=== PATIENT | female | born 1970 | race Caucasian/White ===

== ENCOUNTER 2018-06-05 12:24 | Emergency (ER) | payer OTHER, SELFPAY ==
[2018-06-05 12:33] VITALS: BP 135/71; PULSE 104; RESP 20; TEMP 37; O2SAT 95; BMI 50.5
--- NOTE | 2018-06-05 12:42 | PC.NURSE ---
pt does not know how injury occurred. Assumes it was after moving and lifting heavy objects. Tried chiropractor, flexural, steroids, ibuprofen, and heat therapy with no or little relief. States she is more comfortable laying on her right side and remaining still. States she has difficulty walking, spasms down her leg, as well as tingling and twitching in her left arm and leg. Pt says this is different than her hx of sciatic nerve pain.
--- NOTE | 2018-06-05 12:53 | ED_ITS ---
HPI - Back Pain/Injury <Mary Webster PA-C - Last Filed: 06/05/18 17:42> General Chief Complaint: Back Pain/Injury Stated Complaint: BACK PAIN Time Seen by Provider: 06/05/18 12:52 Source: patient Mode of arrival: ambulatory Limitations: no limitations History of Present Illness HPI Narrative: This 47-year-old female complains left low back pain with muscle spasms and sciatica. She states this started last week when she was pushing some boxes. She felt a twinge in her back but took some ibuprofen and thought it was okay at the time. Pain worsened by the middle of last week, with muscle spasms radiating from her gluteal area up into her low back and somewhat down her leg. She was seen at the walk-in clinic Wednesday and changed to oral steroids and also taking Flexeril. She states that she continues to have spasm and did not notice improvement with the steroids versus the ibuprofen except for urinating more frequently. She states that she feels like her foot gives out due to pain rather than weakness. She does noticed tingling part way down the leg and sometimes in the front of thigh. She denies any difficulty urinating, change in bowel habits, numbness in the groin area. No other injury or new complaints such as fever. This is typical of her previous sciatica but worse Related Data Home Medications Medication Instructions Recorded Confirmed chlorthalidone 25 mg PO DAILY 06/10/18 06/10/18 glipizide 5 mg PO DAILY 06/10/18 06/10/18 insulin glargine [Lantus U-100 58 units SUBCUT QPM 06/10/18 06/10/18 Insulin] losartan 50 mg PO DAILY 06/10/18 06/10/18 metformin 1,000 mg PO BID 06/10/18 06/10/18 wllfhatjmjxm-nsjx-sbfhc acid 1 tab PO DAILY 06/10/18 06/10/18 [Centrum Women] rosuvastatin 20 mg PO DAILY 06/10/18 06/10/18 Previous Rx's Medication Instructions Recorded hydrocodone-acetaminophen [Castella] 1 tab PO Q4-6H PRN #6 tab 06/05/18 tizanidine [Zanaflex] 4 mg PO Q6-8H PRN #10 cap 06/05/18 Allergies Allergy/AdvReac Type Severity Reaction Status Date / Time Penicillins Allergy Verified 06/05/18 12:37 Review of Systems <Mary Webster PA-C - Last Filed: 06/05/18 17:42> Review of Systems All systems reviewed & are unremarkable except as noted in HPI and below Exam <Mary Webster PA-C - Last Filed: 06/05/18 17:42> Narrative Exam Narrative: GENERAL APPEARANCE: Patient resting comfortably, in no distress. PULMONARY: Lungs clear to auscultation bilaterally CV: Regular rhythm regular without murmur, normal S1 and S2, no S3 or S4 MUSCULOSKELETAL: No point tenderness over the lumbar spine. Reduced AROM of trunk in all barth secondary to tenderness. She is able to stand and ambulate with a limp on the left secondary to tenderness. Lower extremity strength 5/5 bilateral hip flexors, knee extensors, foot plantar flexion. Negative modified straight leg raise NEUROVASCULAR: Lower extremity sensation is grossly intact, lower extremity DTRs 1+ with distraction Initial Vital Signs Initial Vital Signs: Vital Signs Temperature 98.6 F 06/05/18 12:33 Pulse Rate 104 H 06/05/18 12:33 Respiratory Rate 20 06/05/18 12:33 Blood Pressure 135/71 06/05/18 12:33 Pulse Oximetry 95 06/05/18 12:33 <Daksha Mclain DO - Last Filed: 06/10/18 18:25> Initial Vital Signs Initial Vital Signs: Vital Signs Temperature 98.6 F 06/05/18 12:33 Pulse Rate 104 H 06/05/18 12:33 Respiratory Rate 20 06/05/18 12:33 Blood Pressure 135/71 06/05/18 12:33 Pulse Oximetry 95 06/05/18 12:33 Course <Mary Webster PA-C - Last Filed: 06/05/18 17:42> Additional Information: Patient was able to stand and ambulate more comfortably prior to d/c without evidence of LE weakness Orders Ordered: Discontinued Medications Hydrocodone Bitart/Acetaminophen (Castella 5/325) 2 tab PO NOW ONE Stop: 06/05/18 13:31 Last Admin: 06/05/18 13:51 Dose: 2 tab Ketorolac Tromethamine (Toradol) 60 mg IM NOW ONE Stop: 06/05/18 13:31 Last Admin: 06/05/18 13:51 Dose: 60 mg Tizanidine HCl (Zanaflex) 4 mg PO [facility] Last Admin: 06/05/18 13:52 Dose: 4 mg Vital Signs - 8 hr 06/05/18 12:33 06/05/18 15:03 Temperature 98.6 F Pulse Rate 104 H 68 Respiratory Rate 20 20 Blood Pressure 135/71 116/85 Pulse Oximetry 95 99 <Daksha Mclain, DO - Last Filed: 06/10/18 18:25> Orders Ordered: Discontinued Medications Hydrocodone Bitart/Acetaminophen (Castella 5/325) 2 tab PO NOW ONE Stop: 06/05/18 13:31 Last Admin: 06/05/18 13:51 Dose: 2 tab Ketorolac Tromethamine (Toradol) 60 mg IM NOW ONE Stop: 06/05/18 13:31 Last Admin: 06/05/18 13:51 Dose: 60 mg Tizanidine HCl (Zanaflex) 4 mg PO [facility] Last Admin: 06/05/18 13:52 Dose: 4 mg Vital Signs - 8 hr 06/05/18 12:33 06/05/18 15:03 Temperature 98.6 F Pulse Rate 104 H 68 Respiratory Rate 20 20 Blood Pressure 135/71 116/85 Pulse Oximetry 95 99 Discharge Plan Departure Patient Disposition: Home Clinical Impression: Sciatica, Sacro-iliac pain Discharge Date/Time: 06/05/18 15:05 Interventions: ED Discharge Assessment Last Done: 06/05/18 15:03 Instructions: Sacroiliac Joint Pain, DI for Back Pain With Sciatica Activity Restrictions/Additional Instructions: Please return as we talked about if you have acute changes such as groin numbness, leg weakness, or inability to urinate. Otherwise, please take the new muscle relaxant and pain medication as needed, do not drive as they can make you sleepy. Since you have finished the steroids, go back to ibuprofen starting tomorrow morning. Call your PCP tomorrow let them know that you were seen at the ED and need to be seen for follow-up evaluation for worsening sciatica Prescriptions: New hydrocodone-acetaminophen [Castella] 5-325 mg tablet 1 tab PO Q4-6H PRN (Reason: acute sciatica/back pain) Qty: 6 RF: 0 tizanidine [Zanaflex] 4 mg capsule 4 mg PO Q6-8H PRN (Reason: muscle spasticity) Qty: 10 RF: 0 No Action losartan 50 mg Tablet 50 mg PO DAILY RF: 0 insulin glargine [Lantus U-100 Insulin] 100 unit/mL Solution 58 units subcut QPM RF: 0 chlorthalidone 25 mg Tablet 25 mg PO DAILY RF: 0 metformin 1,000 mg Tablet 1,000 mg PO BID RF: 0 glipizide 5 mg Tablet 5 mg PO DAILY RF: 0 rosuvastatin 20 mg Tablet 20 mg PO DAILY RF: 0 hdafevhqhxsk-qxfx-qprzy acid [Centrum Women] 18-400 mg-mcg Tablet 1 tab PO DAILY RF: 0 Referrals: Yuri Gore [Primary Care Provider] - <Daksha Mclain DO - Last Filed: 06/10/18 18:25> Cosign ED Attending Catature Attestation: I was immediately available in the department for consultation. Documentation has been reviewed. I agree with assessment and plan.
[2018-06-05] MEDS: KETOROLAC 60 MG/2 ML VIAL IM (13:51)
[2018-06-05] MEDS: HYDROCODONE/ACET 5/325 TABLET 2 TAB PO (13:51)
[2018-06-05] MEDS: TIZANIDINE 4 MG TABLET PO (13:52)
--- NOTE | 2018-06-05 13:52 | PC.NURSE ---
tizanidine order to given now, confirm with provider.
[2018-06-05 15:03] VITALS: BP 116/85; PULSE 68; RESP 20; O2SAT 99
== END 2018-06-05 15:05 | disposition home or self-care (01) ==
PROVIDERS: Emergency Provider Internal Medicine; PCP Family Medicine Sports Medicine
DX: M54.30 Sciatica, unspecified side (principal); M53.3 Sacrococcygeal disorders, not elsewhere classified
CPT/HCPCS: 96372; 99282; 99283; J1885

== ENCOUNTER 2018-06-10 05:03 | Observation (INO) | payer OTHER, SELFPAY ==
[2018-06-10] VITALS (21 sets, daily range): BP systolic 114–176; BP diastolic 73–106; PULSE 68–96; RESP 12–20; TEMP 36.3–37; O2SAT 95–100; BMI 49.4
--- NOTE | 2018-06-10 | DI.RAD.S_ITS ---
PROCEDURE: XR LUMBAR SPINE 2-3V INDICATIONS: DISCECTOMY TECHNIQUE: One views of the lumbar spine were acquired. COMPARISON: None. FINDINGS: Single intraoperative image demonstrates operative marker at the level of L4-5. IMPRESSION: Intraoperative marker as above. Dictated by: Sylwia Ghosh M.D. on 06/10/2018 at 19:23 Approved by: Sylwia Ghosh M.D. on 06/10/2018 at 19:24
[2018-06-10] MEDS: KETOROLAC 60 MG/2 ML VIAL IM (06:52)
--- NOTE | 2018-06-10 07:30 | PC.NURSE ---
report received from Ester LIGHT
--- NOTE | 2018-06-10 08:10 | ED_ITS ---
HPI - Back Pain/Injury <DO Sabrina Chowdhury Last Filed: 06/10/18 08:42> General Chief Complaint: Back Pain/Injury Stated Complaint: lower back pain x2 hours Time Seen by Provider: 06/10/18 06:10 Source: patient Mode of arrival: ambulatory Limitations: no limitations History of Present Illness HPI Narrative: This is a 47-year-old female comes to the emergency department complaint of back pain and recent MRI on Wednesday. She states that MRI showed that she had a spinal fragment. She was trying to be referred to neurology or neurosurgery by her physician. Patient states this morning she was trying to get to the bathroom within it she had urinary incontinence. Patient states that she did feel it was coming. She did have any fecal incontinence. She has had numbness and tingling down both her legs but also states in her arm as well. Patient has had pain in her back and particularly down her left leg. She has a history of diabetes. Related Data Home Medications Medication Instructions Recorded Confirmed chlorthalidone 25 mg PO DAILY 06/10/18 06/10/18 glipizide 5 mg PO DAILY 06/10/18 06/10/18 insulin glargine [Lantus U-100 58 units SUBCUT QPM 06/10/18 06/10/18 Insulin] losartan 50 mg PO DAILY 06/10/18 06/10/18 metformin 1,000 mg PO BID 06/10/18 06/10/18 jyystunmfmnm-qlkd-pttmy acid 1 tab PO DAILY 06/10/18 06/10/18 [Centrum Women] rosuvastatin 20 mg PO DAILY 06/10/18 06/10/18 Previous Rx's Medication Instructions Recorded hydrocodone-acetaminophen [[place]] 1 tab PO Q4-6H PRN #6 tab 06/05/18 tizanidine [Zanaflex] 4 mg PO Q6-8H PRN #10 cap 06/05/18 Allergies Allergy/AdvReac Type Severity Reaction Status Date / Time Penicillins Allergy Verified 06/05/18 12:37 Review of Systems <DO Sabrina Chowdhury Last Filed: 06/10/18 08:42> Review of Systems All systems reviewed & are unremarkable except as noted in HPI and below Constitutional Denies fever(s) Cardiovascular Denies chest pain and Denies dyspnea Respiratory Denies dyspnea Gastrointestinal Gastrointestinal: Denies abdominal pain, Denies fecal incontinence, Denies nausea and Denies vomiting Genitourinary Denies hematuria, Denies urinary frequency, Denies flank pain, Reports urinary incontinence and Denies urinary urgency Musculoskeletal Reports back pain, Reports muscle weakness and Reports numbness Neurologic Reports numbness Exam <Annettavaleria Camejomaki DO - Last Filed: 06/10/18 08:42> Narrative Exam Narrative: GENERAL: Alert and oriented x three, obese, well-appearing female in moderate distress. HEENT: Head normocephalic, atraumatic, EOMI, pupils reactive, face symmetric, moist mucous membranes NECK: Supple, full range of motion CARDIOVASCULAR: Regular rate and rhythm without murmurs, rubs or gallops. RESPIRATORY: Breath sounds equal bilaterally, no wheezes rales or rhonchi. ABDOMEN: Soft, nontender. Normoactive bowel sounds all 4 quadrants. No guarding or rebound, rigidity, no mass : No CVA tenderness BACK: No cervical, thoracic vertebral tenderness. Patient has some lumbar tenderness over the will for 5 region. She also has some SI joint tenderness on the left. Patient has decreased range of motion she is able to roll over and sit up on the edge of the bed. Patient's gait is [antalgic/normal]. Muscle strength is 5/5 in right lower extremity, 4/5 in the left, DTRs are 2/4 and lower extremities. Dorsalis pedis and tibialis pulses are 2+ and lower extremities. Sensation is intact in the lower extremities. EXTREMITIES: Normal range of motion, no clubbing or edema. Neurovascularly intact NEUROLOGICAL: Cranial nerves II through XII grossly intact. Moving all extremities SKIN: Warm, dry, no petechiae, no rashes or lesions. Initial Vital Signs Initial Vital Signs: Vital Signs Temperature 97.4 F L 06/10/18 05:40 Pulse Rate 83 06/10/18 05:40 Respiratory Rate 18 06/10/18 05:40 Blood Pressure 176/106 H 06/10/18 05:40 Pulse Oximetry 96 06/10/18 05:40 <Mohit Coley, DO - Last Filed: 06/10/18 12:43> Initial Vital Signs Initial Vital Signs: Vital Signs Temperature 97.4 F L 06/10/18 05:40 Pulse Rate 83 06/10/18 05:40 Respiratory Rate 18 06/10/18 05:40 Blood Pressure 176/106 H 06/10/18 05:40 Pulse Oximetry 96 06/10/18 05:40 Course <Annetta Hughes, - Last Filed: 06/10/18 08:42> Orders Ordered: ED Orders 06/10/18 10:45 Basic Metabolic Panel Stat Complete Blood Count AUTO DIFF Stat Prothrombin Time INR Stat Discontinued Medications Hydromorphone HCl (Dilaudid) 1 mg IV NOW ONE Stop: 06/10/18 12:02 Last Admin: 06/10/18 12:09 Dose: 1 mg Ketorolac Tromethamine (Toradol) 60 mg IM NOW ONE Stop: 06/10/18 06:42 Last Admin: 06/10/18 06:52 Dose: 60 mg Vital Signs - 8 hr 06/10/18 05:40 06/10/18 06:55 06/10/18 10:56 Temperature 97.4 F L 97.4 F L Pulse Rate 83 83 71 Respiratory Rate 18 18 16 Blood Pressure 176/106 H 176/106 H Blood Pressure [Left Arm] 140/93 H Pulse Oximetry 96 96 96 06/10/18 11:03 06/10/18 12:00 Temperature Pulse Rate 68 77 Respiratory Rate 14 18 Blood Pressure Blood Pressure [Left Arm] 138/89 125/74 Pulse Oximetry 95 98 <Mohit Coley DO - Last Filed: 06/10/18 12:43> Orders Ordered: ED Orders 06/10/18 10:45 Basic Metabolic Panel Stat Complete Blood Count AUTO DIFF Stat Prothrombin Time INR Stat Discontinued Medications Hydromorphone HCl (Dilaudid) 1 mg IV NOW ONE Stop: 06/10/18 12:02 Last Admin: 06/10/18 12:09 Dose: 1 mg Ketorolac Tromethamine (Toradol) 60 mg IM NOW ONE Stop: 06/10/18 06:42 Last Admin: 06/10/18 06:52 Dose: 60 mg Reevaluation(s) Reevaluation #1: patient received in sign out from Dr. Hughes. I have independently reviewed this patient's history and physical and have finally received an MRI report. Consultations Consultation #1: Dr. Vidhi chapman and has reviewed MRI. He is working on OR schedule and plans to take to the OR today. Time: 10:13 Vital Signs - 8 hr 06/10/18 05:40 06/10/18 06:55 06/10/18 10:56 Temperature 97.4 F L 97.4 F L Pulse Rate 83 83 71 Respiratory Rate 18 18 16 Blood Pressure 176/106 H 176/106 H Blood Pressure [Left Arm] 140/93 H Pulse Oximetry 96 96 96 06/10/18 11:03 06/10/18 12:00 Temperature Pulse Rate 68 77 Respiratory Rate 14 18 Blood Pressure Blood Pressure [Left Arm] 138/89 125/74 Pulse Oximetry 95 98 MDM - Back Pain/Injury <Annettavaleria Hughes, - Last Filed: 06/10/18 08:42> Lab Data Result diagrams: 06/10/18 10:45 06/10/18 10:45 Lab Results 06/10/18 06/10/18 06/10/18 Range/Units 10:45 10:45 10:45 WBC 8.6 (4.5-11.0) X10^3/uL RBC 4.66 (4.0-5.2) X10^6/uL Hgb 13.6 (12.0-16.0) g/dL Hct 39.5 (36-46) % MCV 84.7 (80-100) fL MCH 29.2 (26-34) PG MCHC 34.5 (30-36) % RDW 13.5 (11.6-14.8) % Plt Count 233 (150-400) X10^3/uL Neut % (Auto) 54.0 (50-75) % Lymph % (Auto) 36.6 (25-40) % [place] % (Auto) 6.8 (3-14) % Eos % (Auto) 1.7 L (2-4) % Baso % (Auto) 0.9 (0-2) % Neut # (Auto) 4700 (5822-9246) /uL PT 10.8 (10.1-12.7) SECONDS INR 1.0 (0.9-1.3) Sodium 137 (137-145) mmol/L Potassium 3.4 (3.4-5.1) mmol/L Chloride 94 L (98-107) mmol/L Carbon Dioxide 35 H (22-32) mmol/L BUN 17 (7-17) mg/dL Creatinine 0.60 (0.52-1.04) mg/dL Estimated GFR > 60.0 (>60) mL/min BUN/Creatinine Ratio 28.3 H (6-22) Glucose 213 H (70-100) mg/dL Calcium 8.9 (8.4-10.2) mg/dL MDM Narrative Medical decision making narrative: Patient states she had an MRI of her back, trying to get these records as she just had an MRI on Wednesday likely does not need a recurrent MRI today. Attempting to get records. Signed out to Dr. Coley while awaiting. <Mohit Coley, DO - Last Filed: 06/10/18 12:43> Lab Data Lab Results 06/10/18 06/10/18 06/10/18 Range/Units 10:45 10:45 10:45 WBC 8.6 (4.5-11.0) X10^3/uL RBC 4.66 (4.0-5.2) X10^6/uL Hgb 13.6 (12.0-16.0) g/dL Hct 39.5 (36-46) % MCV 84.7 (80-100) fL MCH 29.2 (26-34) PG MCHC 34.5 (30-36) % RDW 13.5 (11.6-14.8) % Plt Count 233 (150-400) X10^3/uL Neut % (Auto) 54.0 (50-75) % Lymph % (Auto) 36.6 (25-40) % [place] % (Auto) 6.8 (3-14) % Eos % (Auto) 1.7 L (2-4) % Baso % (Auto) 0.9 (0-2) % Neut # (Auto) 4700 (0403-6926) /uL PT 10.8 (10.1-12.7) SECONDS INR 1.0 (0.9-1.3) Sodium 137 (137-145) mmol/L Potassium 3.4 (3.4-5.1) mmol/L Chloride 94 L (98-107) mmol/L Carbon Dioxide 35 H (22-32) mmol/L BUN 17 (7-17) mg/dL Creatinine 0.60 (0.52-1.04) mg/dL Estimated GFR > 60.0 (>60) mL/min BUN/Creatinine Ratio 28.3 H (6-22) Glucose 213 H (70-100) mg/dL Calcium 8.9 (8.4-10.2) mg/dL Discharge Plan Departure Patient Disposition: Admitted as Observation Clinical Impression: Acute left lumbar radiculopathy Admit Date/Time: 06/10/18 12:38 Admit Provider: Marisabel Mosher
[2018-06-10 10:59] LABS: Add Manual Diff / Slide Review NO; Basophils Percent Auto 0.9 % (0-2); Eosinophils Percent Auto 1.7 % (2-4); Hematocrit 39.5 % (36-46); Hemoglobin 13.6 g/dL (12.0-16.0); Lymphocytes Percent Auto 36.6 % (25-40); Mean Corpuscular HGB Conc 34.5 % (30-36); Mean Corpuscular Hemoglobin 29.2 PG (26-34); Mean Corpuscular Volume 84.7 fL (80-100); Monocytes Percent Auto 6.8 % (3-14); Neutrophils Absolute Auto 4700 /uL (3000-5900); Platelet Count 233 X10^3/uL (150-400); Red Blood Cell Count 4.66 X10^6/uL (4.0-5.2); Red Cell Distribution Width 13.5 % (11.6-14.8); White Blood Cell Count 8.6 X10^3/uL (4.5-11.0)
[2018-06-10 11:10] LABS: Prothrombin Time 10.8 SECONDS (10.1-12.7)
[2018-06-10 11:15] LABS: BUN Creatinine Ratio 28.3 (6-22); Blood Urea Nitrogen 17 mg/dL (7-17); Calcium 8.9 mg/dL (8.4-10.2); Carbon Dioxide 35 mmol/L (22-32); Chloride 94 mmol/L (98-107); Estimated Glomerular Filt Rate > 60.0 mL/min (>60); Glucose 213 mg/dL (70-100); HEMOLYSIS < 15 (0-50); Potassium 3.4 mmol/L (3.4-5.1); Sodium 137 mmol/L (137-145)
[2018-06-10] MEDS: HYDROMORPHONE 1 MG INJ IV ×2 (12:09→15:12)
[2018-06-10] MEDS: SODIUM CHLORIDE 0.9% 1,000 ML 125 ML IV (15:10)
--- NOTE | 2018-06-10 15:30 | PC.NURSE ---
IV fluids infusing; IV dilaudid for severe pain; patient oriented to room and instructed regarding fall risk; VSS; O2 WI=895%
--- NOTE | 2018-06-10 16:50 | P.HP_ITS ---
History of Present Illness Date Patient Seen: 06/10/18 Time Patient Seen: 15:27 Chief complaint: lower back pain x2 hours Narrative: Ms. Easton is a 47 yo F with 10 day hx of progressively worsening back pain, left leg pain, leg weakness. She has difficulty walking, standing over the last weeks. She presented to the emergency department twice in the last week. Today she is unable to walk and had an episode of loss of bladder control. Orthopedic service was consulted. Patient History Medical History Diabetes mellitus, insulin dependent (IDDM), controlled (Chronic) HTN (hypertension) (Chronic) Surgical History Status post cholecystectomy (Resolved) Status post hysterectomy (Resolved) Status post tonsillectomy (Resolved) Family & Social History Family History: Reviewed 06/10/18 by Marisabel Mosher MD Social History: household members family Safety & Behavioral: Feels Safe in Current Yes Environment Been Physically Hurt or No Threatened By a Person Suicidal Ideation Description None Suicide Plan Description No Plan Tobacco & Substance use: Smoking Status Former smoker alcohol intake never alcohol intake frequency a few times a month Substance Use Type does not use Meds Home Medications Medication Instructions Recorded Confirmed Type hydrocodone-acetaminophen [[place]] 1 tab PO Q4-6H PRN #6 tab 06/05/18 06/10/18 Rx tizanidine [Zanaflex] 4 mg PO Q6-8H PRN #10 cap 06/05/18 06/10/18 Rx chlorthalidone 25 mg PO DAILY 06/10/18 06/10/18 History glipizide 5 mg PO DAILY 06/10/18 06/10/18 History insulin glargine [Lantus U-100 58 units SUBCUT QPM 06/10/18 06/10/18 History Insulin] losartan 50 mg PO DAILY 06/10/18 06/10/18 History metformin 1,000 mg PO BID 06/10/18 06/10/18 History pjtowkbeakmr-mygx-wubbp acid 1 tab PO DAILY 06/10/18 06/10/18 History [Centrum Women] rosuvastatin 20 mg PO DAILY 06/10/18 06/10/18 History Allergies Allergy/AdvReac Type Severity Reaction Status Date / Time Penicillins Allergy Verified 06/05/18 12:37 Review of Systems Review of Systems All systems reviewed & are unremarkable except as noted in HPI and below Exam Vital Signs (past 8 hours): - 06/10/18 10:56 06/10/18 11:03 06/10/18 12:00 Temperature Pulse Rate 71 68 77 Respiratory Rate 16 14 18 Blood Pressure Blood Pressure [Left Arm] 140/93 H 138/89 125/74 Pulse Oximetry 96 95 98 06/10/18 13:00 06/10/18 14:05 06/10/18 14:40 Temperature 97.9 F Pulse Rate 81 74 68 Respiratory Rate 16 20 Blood Pressure 128/86 Blood Pressure [Left Arm] 137/82 133/81 Pulse Oximetry 97 96 95 Oxygen Delivery Method Room Air Back/Spine/Pelvis Back: normal to inspection Thoracic/Lumbar Spine: straight leg raise positive Neuro Motor: muscle tone abnormal (Motor strength 4/5 in left EHL and gastroc) Sensory Exam: lower extremity (decreased sensiblity in left L5, S1 dermatome) Objective Labs Result Diagrams: 06/10/18 10:45 06/10/18 10:45 Labs: Laboratory Results - last 24 hr 06/10/18 06/10/18 06/10/18 10:45 10:45 10:45 WBC 8.6 RBC 4.66 Hgb 13.6 Hct 39.5 MCV 84.7 MCH 29.2 MCHC 34.5 RDW 13.5 Plt Count 233 Neut % (Auto) 54.0 Lymph % (Auto) 36.6 [place] % (Auto) 6.8 Eos % (Auto) 1.7 L Baso % (Auto) 0.9 Neut # (Auto) 4700 PT 10.8 INR 1.0 Sodium 137 Potassium 3.4 Chloride 94 L Carbon Dioxide 35 H BUN 17 Creatinine 0.60 Estimated GFR > 60.0 BUN/Creatinine Ratio 28.3 H Glucose 213 H Calcium 8.9 Assessment & Plan Plan: Assessment/Plan Narrative: 47 yo F with large acute L4-5 disc extrusion causing severe radiculopathy for the last 7 days. She is unable to walk, stand, sit due to her severe radiating pain down her left leg. She had her first episode of loss of control of her bladder today, possibly due to pain. She has no saddle parathesia at this time. After discussing with her risks and benefits of surgery, which includes but not limited to bleeding, infection, dura injury, need for additional procedure, recurrent disc herniation, persisting pain and weakness. Patient understands and would like to proceed with surgery. I scheduled her for L4-5 left microdiscectomy.
[2018-06-10] MEDS: LACTATED RINGERS 1,000 ML 42 ML IV (17:20)
[2018-06-10] MEDS: CLINDAMYCIN 900 MG/50 ML PIGGYBACK 50 MG IV (17:23)
--- NOTE | 2018-06-10 18:01 | SUR.OPER ---
Prone on spine table, head in foam head support, padded chest and pelvic supports, gel pad at knees, lower legs supported by pillows; nipples, genitalia and toes free of pressure, arms secured on foam padded arm boards at <90 degrees abduction. Tape over blanket at thigh secured to table.
[2018-06-10] MEDS: BUPIVACAINE 0.25% W/ EPI VIAL 30 ML INJ (18:06)
[2018-06-10] MEDS: methylPREDNISolone acet DEPO 40 MG/ML VIAL IM (18:10)
--- NOTE | 2018-06-10 18:23 | SUR.OPER ---
FS [id number]
--- NOTE | 2018-06-10 18:58 | PM.OP.1 ---
Operative Date/Time/Diagnoses Date of procedure: 06/10/18 Time of procedure: 17:17 Pre-op diagnosis: 1. L4-5 lumbar disc herniation 2. L4-5, L5-S1 spinal stenosis Post-op diagnosis: same Procedure & Clinicians Procedure: 1. L4-5 left microdiscectomy 2. L5-S1 left hemilaminectomy 2. Utilization of microsurgical technique and operating microscope Same procedure as scheduled: Yes Indications: Patient has been having acute onset back pain and worsening lumbar radiculopathy with weakness, pain. Patient failed conservative management with worsening pain weakness and numbness in her lower extremity. Patient has been having difficulty performing activity of daily living. After discussing risks benefits of treatment options, patient elected proceed with surgery. Surgeon: Marisabel Mosher Plant Operator Helper: Ann Gonzales Click Yes if Unassisted: No Anesthesia Type: General Operative Notes Closure Type: primary Specimen(s): none sent Estimated Blood Loss (mL): 50 Blood products transfused: none Procedure in detail: Patient was seen in the preoperative area. Risks and benefits of the surgery was discussed with the patient. Informed consent was obtained from the patient and placed in the chart. Surgical site was marked. Patient was taken to the operative room. General anesthesia was administered. Prophylactic antibiotic was given to the patient less than 30 min before the incision was made. Patient was placed into a prone position on the Joesph table. Patient's back was then prepped and draped in the sterile fashion. Time-out was performed at this time. Using AP and lateral C-arm imaging the interval between L4-5 was identified and marked on patient's back. A 1 inch incision 1 in from midline was made on the left side. The fascia was incised in line with skin incision. Globus MARS retractors was placed inside the incision and docked onto the L4 lamina. Using microsurgical technique and operating microscope, a L4 laminotomy was performed using a Kerrison rongeur. Liagamentum flavum was resected at the site of the laminotomy. The disc space at L4-5 was identified. Microdiscectomy was performed by incising the annulus with #11 blade. Microcurettes and pituitary was used to removed herniated disc fragments of disc from the epidural space. There was significant migration of the disc caudally form L4-5 towards L5-S1. A L5-S1 left hemilaminectomy was performed using a Kerrison rongeur in order to access the full extent of the extruded disc fragment. After the L5-S1 left hemilaminectomy was performed, a nerve probe was used to manipulate the additional extruded disc fragment into view. The disc fragments was then removed using a pituitary from the epidural space. After the microdiskectomy and hemilaminectomy was completed, the area medial lateral superior and inferior to the area of the microdiskectomy was inspected and explored using a micro curette. No other impinging structure was identified. The wound was then irrigated with sterile normal saline. 40 mg Depo-Medrol was placed into the epidural space. The deep fascia was closed with 1-0 Vicryl. The subcutaneous tissue was closed with 2-0 Vicryl. The skin was closed with 4-0 Monocryl. Patient tolerated the procedure well. There were no complications. Patient was transferred recovery room in stable condition. Due to patient's severe radiculopathy and newly onset loss of bladder control today, patient will be kept in the hospital for observation overnight for neurologic observation. Complications: none Condition: stable Disposition: PACU Plan for aftercare: Admit over night for observation
--- NOTE | 2018-06-10 19:04 | P.OP_ITS ---
Operative Date/Time/Diagnoses Date of procedure: 06/10/18 Time of procedure: 17:17 Pre-op diagnosis: 1. L4-5 lumbar disc herniation 2. L4-5, L5-S1 spinal stenosis Post-op diagnosis: same Procedure & Clinicians Procedure: 1. L4-5 left microdiscectomy 2. L5-S1 left hemilaminectomy 2. Utilization of microsurgical technique and operating microscope Same procedure as scheduled: Yes Indications: Patient has been having acute onset back pain and worsening lumbar radiculopathy with weakness, pain. Patient failed conservative management with worsening pain weakness and numbness in her lower extremity. Patient has been having difficulty performing activity of daily living. After discussing risks benefits of treatment options , patient elected proceed with surgery. Surgeon: Marisabel Mosher Explosives Detonator: Ann Gonzales Click Yes if Unassisted: No Anesthesia Type: General Operative Notes Closure Type: primary Specimen(s): none sent Estimated Blood Loss (mL): 50 Blood products transfused: none Procedure in detail: Patient was seen in the preoperative area. Risks and benefits of the surgery was discussed with the patient. Informed consent was obtained from the patient and placed in the chart. Surgical site was marked. Patient was taken to the operative room. General anesthesia was administered. Prophylactic antibiotic was given to the patient less than 30 min before the incision was made. Patient was placed into a prone position on the Joesph table. Patient's back was then prepped and draped in the sterile fashion. Time- out was performed at this time. Using AP and lateral C-arm imaging the interval between L4-5 was identified and marked on patient's back. A 1 inch incision 1 in from midline was made on the left side. The fascia was incised in line with skin incision. Globus MARS retractors was placed inside the incision and docked onto the L4 lamina. Using microsurgical technique and operating microscope, a L4 laminotomy was performed using a Kerrison rongeur. Liagamentum flavum was resected at the site of the laminotomy. The disc space at L4-5 was identified. Microdiscectomy was performed by incising the annulus with #11 blade. Microcurettes and pituitary was used to removed herniated disc fragments of disc from the epidural space. There was significant migration of the disc caudally form L4-5 towards L5-S1. A L5-S1 left hemilaminectomy was performed using a Kerrison rongeur in order to access the full extent of the extruded disc fragment. After the L5-S1 left hemilaminectomy was performed, a nerve probe was used to manipulate the additional extruded disc fragment into view. The disc fragments was then removed using a pituitary from the epidural space. After the microdiskectomy and hemilaminectomy was completed, the area medial lateral superior and inferior to the area of the microdiskectomy was inspected and explored using a micro curette. No other impinging structure was identified. The wound was then irrigated with sterile normal saline. 40 mg Depo-Medrol was placed into the epidural space. The deep fascia was closed with 1-0 Vicryl. The subcutaneous tissue was closed with 2-0 Vicryl. The skin was closed with 4- 0 Monocryl. Patient tolerated the procedure well. There were no complications. Patient was transferred recovery room in stable condition. Due to patient's severe radiculopathy and newly onset loss of bladder control today, patient will be kept in the hospital for observation overnight for neurologic observation. Complications: none Condition: stable Disposition: PACU Plan for aftercare: Admit over night for observation
[2018-06-10] MEDS: hydrOXYzine 50 MG/ML INJ 25 MG IM (19:20)
[2018-06-10] MEDS: fentaNYL 100 MCG/2 ML INJ 50 MCG IV ×2 (19:20→19:27)
[2018-06-10] MEDS: SENNOSIDES 8.6 MG TABLET 17.2 MG PO (20:12)
[2018-06-10] MEDS: DOCUSATE 100 MG CAPSULE PO (20:13)
[2018-06-10] MEDS: SODIUM CHLORIDE 0.9% 1,000 ML 100 ML IV (20:13)
[2018-06-10] MEDS: METFORMIN HCL 500 MG TABLET 1000 MG PO (20:13)
[2018-06-10] MEDS: hydrOXYzine pamoate 25 MG CAPSULE PO (20:13)
[2018-06-10] MEDS: OXYCODONE IR 5 MG TABLET 10 MG PO (20:14)
[2018-06-11 03:11] VITALS: BP 137/83; PULSE 82; RESP 14; TEMP 36.7; O2SAT 96
[2018-06-11 06:09] LABS: Hematocrit 37.2 % (36-46); Hemoglobin 12.7 g/dL (12.0-16.0)
--- NOTE | 2018-06-11 07:28 | PM.DS.1 ---
History of Present Illness Date Patient Seen: 06/11/18 Chief complaint: lower back pain x2 hours Narrative: Patient seen bedside s/p L4-5 left microdiscketomy. Patient is doing well, pain is controlled and numbness/tingling has resolved. She does complain of some residual soreness around the incision site as well as a slight headache. She has been up to the bathroom a few times but has not yet worked with PT. Discharge Providers Date of admission: 06/10/18 12:38 Primary care physician: Yuri Gore Consults: 06/10/18 19:34 Consult to Occupational Therapy Evaluate & Treat Comment: Physician Instructions: Evaluate and treat Consult to Physical Therapy Evaluate & Treat Comment: Physician Instructions: Evaluate and Treat Discharge provider: Ann Gonzales PA-C Discharge Date: 06/11/18 Summary Discharge Diagnosis: Acute L4-5 disc extrusion causing severe radiculopathy Hospital Course: Patient was admitted to the hospital on 06/09/18 with severe radiculopathy and back pain x7 days. She was found to have an acute L4-5 disc extrusion on MRI. She was seen by Dr. Mosher who took her to the OR for a left L4-5 microdiscketomy. Patient tolerated the procedure well with no major complications. She was seen by PT/OT on 06/11/18 and she was cleared for discharge home. She was stable and ready for discharge on 06/11/18. Status at Discharge Cognitive/behavioral status at discharge: Alert & oriented x4. Functional status at discharge: independent ambulation Overall status at discharge: patient is progressing back to baseline Time Spent with Patient Less than 30 minutes Exam Vital Signs (past 8 hours): - 06/10/18 23:30 06/11/18 03:11 Temperature 97.9 F 98.0 F Pulse Rate 83 82 Respiratory Rate 18 14 Blood Pressure 134/76 137/83 Pulse Oximetry 95 96 Oxygen Delivery Method Nasal Cannula Oxygen Flow Rate 1 Narrative Exam Narrative: WDWN NAD A&OX3. Surgical dressing CDI. Full ROM of the foot and ankle noted with full sensation. Pulses present bilaterally. No focal deficits noted. Calves are soft and compressible. Objective Labs Result Diagrams: 06/11/18 05:38 06/10/18 10:45 Labs: Laboratory Results - last 24 hr 06/10/18 06/10/18 06/10/18 10:45 10:45 10:45 WBC 8.6 RBC 4.66 Hgb 13.6 Hct 39.5 MCV 84.7 MCH 29.2 MCHC 34.5 RDW 13.5 Plt Count 233 Neut % (Auto) 54.0 Lymph % (Auto) 36.6 [place] % (Auto) 6.8 Eos % (Auto) 1.7 L Baso % (Auto) 0.9 Neut # (Auto) 4700 PT 10.8 INR 1.0 Sodium 137 Potassium 3.4 Chloride 94 L Carbon Dioxide 35 H BUN 17 Creatinine 0.60 Estimated GFR > 60.0 BUN/Creatinine Ratio 28.3 H Glucose 213 H Calcium 8.9 06/11/18 05:38 WBC RBC Hgb 12.7 Hct 37.2 MCV MCH MCHC RDW Plt Count Neut % (Auto) Lymph % (Auto) [place] % (Auto) Eos % (Auto) Baso % (Auto) Neut # (Auto) PT INR Sodium Potassium Chloride Carbon Dioxide BUN Creatinine Estimated GFR BUN/Creatinine Ratio Glucose Calcium Discharge Plan Discharge Plan Patient Disposition: Home Discharge Med Rec/Prescriptions Prescriptions: New acetaminophen 325 mg Tablet 650 mg PO Q6HR PRN (Reason: Pain, Mild (1-3)) Qty: 0 RF: 0 docusate sodium 100 mg Capsule 100 mg PO BID Qty: 0 RF: 0 hydroxyzine pamoate 25 mg Capsule 25 mg PO Q4HR PRN (Reason: Nausea And Vomiting) Qty: 50 RF: 0 oxycodone 5 mg tablet 5 mg PO Q4-6H PRN (Reason: pain) Qty: 40 RF: 0 Continue tizanidine [Zanaflex] 4 mg capsule 4 mg PO Q6-8H PRN (Reason: muscle spasticity) Qty: 10 RF: 0 losartan 50 mg Tablet 50 mg PO DAILY RF: 0 insulin glargine [Lantus U-100 Insulin] 100 unit/mL Solution 58 units subcut QPM RF: 0 chlorthalidone 25 mg Tablet 25 mg PO DAILY RF: 0 metformin 1,000 mg Tablet 1,000 mg PO BID RF: 0 glipizide 5 mg Tablet 5 mg PO DAILY RF: 0 rosuvastatin 20 mg Tablet 20 mg PO DAILY RF: 0 uwevznpxrfho-ffrd-ibwel acid [Centrum Women] 18-400 mg-mcg Tablet 1 tab PO DAILY RF: 0 Discontinued hydrocodone-acetaminophen [[place]] 5-325 mg tablet 1 tab PO Q4-6H PRN (Reason: acute sciatica/back pain) Qty: 6 RF: 0 Follow up/Referrals: Marisabel Mosher MD [Physician] - (Call the office to make a post-op appointment in 2 week's time.) Provider Discharge Instructions Diet: Carb-consistent/Diabetic Activity: Weightbearing as tolerated, limit twisting/bending. No lifting greater than 5 lbs. Cold/Heat Therapy: Apply ice to surgical area 20 minutes at a time as needed hourly while awake. Skin/Wound/Dressing Care Report to your healthcare provider any signs of infection, such as:: chills, fever, night sweats, increased pain and unusual drainage Dressing: Keep dressing clean, dry, and intact. Discharge Data Primary Care Provider: Yuri Gore Attending Provider: Marisabel Mosher Admit Date/Time: 06/10/18 12:38
[2018-06-11] MEDS: glipiZIDE 5 MG TABLET PO (08:25)
[2018-06-11] MEDS: METFORMIN HCL 500 MG TABLET 1000 MG PO (08:25)
[2018-06-11] MEDS: DOCUSATE 100 MG CAPSULE PO (08:25)
[2018-06-11] MEDS: CHLORTHALIDONE 25 MG TABLET PO (08:25)
[2018-06-11] MEDS: ACETAMINOPHEN 325 MG TABLET 650 MG PO (08:25)
[2018-06-11] MEDS: ROSUVASTATIN 10 MG TABLET 20 MG PO (08:25)
[2018-06-11] MEDS: OXYCODONE IR 5 MG TABLET PO ×2 (08:25→13:09)
[2018-06-11 08:32] VITALS: BP 147/93; PULSE 84; RESP 18; TEMP 36.6; O2SAT 95
--- NOTE | 2018-06-11 09:12 | CM.DANOTE ---
DCP: Case received, EMR reviewed and met with patient. Introduced self and role. DCP template completed with information currently available. Patient is a 47 year old female who admitted yesterday afternoon to the care of the hospitalist team. PCP: Dr. Gore. Payer: confirmed: [employer]. Patient came to hospital to have a left microdisectomy, secondary to acute back pain. Patient pleasant, alert and oriented. Lives in [facility] with spouse, other family members present as well. Is planning on going home after seeing physical therapy. P: Patient may be going home after working with physical therapy. Tomasa Acosta RN/Pipe Cleaner
--- NOTE | 2018-06-11 09:40 | PT.IIE ---
Surgery Performed Operation Date: 06/10/18 17:15 Actual Procedures p Discectomy L4,L5 - Marisabel Mosher MD Surgical History (Last Reviewed 06/10/18 @ 16:44 by Marisabel Mosher MD) Status post cholecystectomy (Resolved) Status post hysterectomy (Resolved) Status post tonsillectomy (Resolved) Medical History (Last Reviewed 06/10/18 @ 16:44 by Marisabel Mosher MD) Diabetes mellitus, insulin dependent (IDDM), controlled (Chronic) HTN (hypertension) (Chronic) Physical Therapy Inpatient Evaluation/Re-Eval M1 PT/OT-IP Prior Functional Status Start: 06/11/18 14:12 Freq: NEEDED Status: Active Protocol: Document 06/11/18 09:40 AB (Rec: 06/11/18 14:25 AB [id number]) Medical Review Prior Functional Status Medical History Reviewed Yes Communication able to make needs known Mobility and Gait pt stated that she is independent with all mobilities and ambulation without AD Social History Household Members spouse family Living Arrangements House Number of Floors (Floors) 3 or More Floors Number of Stairs To Enter/Railing? has 4 steps to enter with bilateral wide rails has 4 steps with bilateral rails to get to bed room and 2 steps down with bilateral rails to get to kitchen Home Environment Standard Height Toilet Tub/Shower Additional Social History Comment has a high bed and uses a step stool to get up onto the bed. M2 PT-IP Current Condition Start: 06/11/18 14:12 Freq: NEEDED Status: Active Protocol: Document 06/11/18 09:40 AB (Rec: 06/11/18 14:25 AB [id number]) Physical Therapy Current Condition Current Condition Evaluation Date 06/11/18 Treatment Diagnosis s/p L4-5 L microdiscectomy/ L5 -S1 L hemilaminectomy; difficulty in walking Onset Date 06/10/18 Precautions Lumbar Precautions Log Roll No Twisting Limit Bending Lifting Restriction of 10 lbs Gait Belt above Incisional Area Weight Bearing Status Weight Bearing Status Weight Bear as Tolerated M3 PT-IP Subjective Start: 06/11/18 14:12 Freq: NEEDED Status: Active Protocol: Document 06/11/18 09:40 AB (Rec: 06/11/18 14:25 AB [id number]) Subjective Physical Therapy Visit Type Type Initial Evaluation Visit Start Time 09:40 Visit Stop Time 10:45 Total Visit Minutes 65 Number of SCHOOL JANITOR Visits 0 Physical Therapy Visit Comments Patient Comments pt agreeable to do PT Patient Goals to go home Therapy Pain Assessment Pain When Pain Assessed At Rest Pain Present Pain Present Pain Reported Location Back Intensity 4 Scale Used Numeric (1 - 10) Pain Management Techniques Re-positioning Timing of Activity with Medications M4 PT-IP Mobility and Gait Start: 06/11/18 14:12 Freq: NEEDED Status: Active Protocol: Document 06/11/18 09:40 AB (Rec: 06/11/18 14:25 AB [id number]) PT-Bed Mobility Assessment Rolling Type of Rolling Log Rolling Level of Assist Standby Assistance Supine to Sit Supine to Sit Standby Assistance Sit to Supine Sit to Supine Standby Assistance Scooting Scooting to Edge of Bed Standby Assistance Scooting Up and Down in Bed Standby Assistance PT-Transfer Assessment Sit to and From Stand Sit to and from Stand Standby Assistance Equipment Transfer Assistive Device Bed Rail Front Wheeled Walker Orthotic/Prosthetic Devices or Brace: No Transfers Transfer Destination Bed Chair Transfer Technique Stand Step Pivot Transfer Ability Level of Assist Standby Assistance Comments Mobility Comments pt was able to step up/down 1 step stool using FWW for support to get in/out of bed SBA Gait Assessment Gait Gait Assistance Required: Standby Assistance Distance (Feet) 250 Able to Maintain Weight Bearing Status Yes During Gait Assistive Devices Assistive Device Gait Belt Front Wheeled Walker Orthotic/Prosthetic Devices or Brace: No Gait Deviations General Gait Pattern Decreased Stride Length Decreased Feet Clearance Factors Limiting Gait Function Factors Limiting Gait Function Decreased Strength Limited Range of Motion Pain Poor Balance Comments Gait Comments pt completed ambulation in hallway ~ 250 ft x 2 using FWW SBA Stair Climbing Assessment Evaluation Level of Assist On Stairs Standby Assistance Contact Guard Assistance Devices Stair Climbing Assistive Devices Left Railing Right Railing Technique/Endurance Stair Climbing Direction Ascend and Descend Stair Climbing Technique Step to Step Number of Steps Climbed 3 Query Text: Stair Climbing Set # Repetitions (reps) 2 Comments Stair Climbing Comments completed up/down steps initially using bilateral rails SBA and then, L rail ascending SBA and completed again using R rail ascending SBA PT-Balance Assessment Sitting Balance and Reactions Static Sitting Balance Ability Good Dynamic Sitting Balance Ability Good Standing Balance and Reactions Static Standing Balance Ability Fair Dynamic Standing Balance Ability Fair Device Used FWW M5 PT-IP Objective Assessments Start: 06/11/18 14:12 Freq: NEEDED Status: Active Protocol: Document 06/11/18 09:40 AB (Rec: 06/11/18 14:25 AB [id number]) Orientation Orientation/Cognition Level of Alertness Alert Orientation Name Age Birthday Month Date Year Day of Week Place Situation Safety Awareness Understands Safety Issues Memory Description No Deficits Noted Gross Range of Motion Lower Extremity ROM Assessment Within Functional Limits Strength Lower Extremity Strength Assessment Bilaterally Impaired Comments Strength Comments LLE 4-/5 RLE 4/5 Sensation Assessment Sensation Gross Sensation WNL Muscle Tone Muscle Tone WNL Yes M6 PT-IP Treatment Start: 06/11/18 14:12 Freq: NEEDED Status: Active Protocol: Document 06/11/18 09:40 AB (Rec: 06/11/18 14:25 AB [id number]) Physical Therapy Treatment Education Education Provided Precautions Weight Bearing Status Post-Op Packet Safety Equipment Issued Equipment Type and Company pt needing FWW for home use. Obtained order and dispensed FWW to pt. Pt signed DME paper from [employer]. M7 PT-IP Assessment and Plan Start: 06/11/18 14:12 Freq: NEEDED Status: Active Protocol: Document 06/11/18 09:40 AB (Rec: 06/11/18 14:25 AB [id number]) PT Summary Assessment and Plan Potential Rehabilitation Potential Good Status of Condition at Evaluation Stable Summary Impairments Pain ROM Strength Balance Coordination Sensation Tone Cognition Bed Mobility Transfers Gait Activity Tolerance Assessment Summary pt doing well with mobility requiring SBA. pt plans to go home with family to assist her. pt may go home when medically stable. Goals Bed Mobility Goal Independent Transfer Goal Independent Gait Goal Independent Gait Distance 300 Other Goals up/down 4 steps using one rail Mod I Days to Meet Goals 2 Frequency of Treatment Frequency Of Treatment Twice a Day Treatment Plan Physical Therapy Treatment Plan Bed Mobility Training Transfer Training Gait Training Therapeutic Exercise Balance Retraining Post Op Education Discharge Planning Hot or Cold Pack Neuromuscular Re-ed Coordination Retraining Manual Therapy Recommendations To Nursing Amount of Assist Needed Standby Assistance Discharge Recommendations PT Discharge Recommendations Home with Assistance
[2018-06-11] MEDS: LOSARTAN 50 MG TABLET PO (10:19)
--- NOTE | 2018-06-11 11:00 | OT.IP.TRT ---
Surgery Performed Operation Date: 06/10/18 17:15 Actual Procedures p Discectomy L4,L5 - Marisabel Mosher MD Occupational Therapy Treatment Note M3 OT- IP Subjective and Pain Start: 06/11/18 10:56 Freq: Status: Active Protocol: Document 06/11/18 10:57 [facility] (Rec: 06/11/18 11:00 [facility] [id number]) OT- Subjective Occupational Therapy Visit Type Type Administrative Note Notes Spoke to pt and pt states have help at home to assist with her needs especially stepping into and out of the tub. Pt states able to shower mostly on her own, already has been standing to wipe and has LB AED from family member at home . No charge, and no OT eval needed at this time.
[2018-06-11] MEDS: hydrOXYzine pamoate 25 MG CAPSULE PO (13:09)
--- NOTE | 2018-06-11 13:11 | PC.NURSE ---
Discharge instructions, medications and home handout instructions reviewed with patient. Dressing to low back intact. patient instructed to call Dr. Mosher's office to schedule a follow up appointment to be seen in 2 weeks. IV dc'd intact. Patient states understanding of home care and has no further questions or concerns at this time. Escorted out via wheelchair by [employer] with all belongings.
== END 2018-06-11 13:13 | disposition home or self-care (01) ==
LOC: ED 12:35 → AC 12:39
PROVIDERS: Admitting Provider Orthopaedic Surgery Orthopaedic Surgery of the Spine; Emergency Provider Emergency Medicine; PCP Family Medicine Sports Medicine; Visit Provider Orthopaedic Surgery Orthopaedic Surgery of the Spine
PROC: (CPT 63047; principal; 2018-06-10 17:15)
DX: M51.16 Intervertebral disc disorders with radiculopathy, lumbar region (principal); M48.061 Spinal stenosis, lumbar region without neurogenic claudication; E11.9 Type 2 diabetes mellitus without complications; I10 Essential (primary) hypertension; Z87.891 Personal history of nicotine dependence; R32 Unspecified urinary incontinence
CPT/HCPCS: 63047; 63030; 36415; 36591; 72020; 76000; 80048; 82962; 85014; 85018; 85025; 85610; 96372; 96374; 97116; 97161; 97530; 99283; 99285; G0378; J0330; J1030; J1170; J1885; J2250; J2405; J2704; J2765; J3010; J3410

== ENCOUNTER 2018-11-15 07:45 | Emergency (ER) | payer OTHER, SELFPAY ==
[2018-06-10 14:51] VITALS: BMI 49.4
[2018-11-15 07:58] VITALS: BP 147/100; PULSE 87; RESP 16; TEMP 36.3; O2SAT 98
--- NOTE | 2018-11-15 08:01 | ED.LOWEXIN ---
HPI - Extremity Injury (Lower) General Chief Complaint: Extremity Injury, Lower Stated Complaint: LT FOOT HEAL/TRIPPED/STEPPED DOWN Time Seen by Provider: 11/15/18 08:00 Source: patient Mode of arrival: ambulatory Limitations: no limitations History of Present Illness HPI Narrative: This is a 48-year-old female who comes to the emergency department with complaint of left heel pain. patient states yesterday she was at her [employer] baseball game. She was stepping down off the bleachers when she stepped down sort of forcefully on her heel. Patient states that she has had pain since then. She has a little bit of swelling. No discoloration patient is not having any numbness, no tingling. She has pain with weight-bearing. She has not had any cuts or injuries to the foot otherwise that she has noted. She is a diabetic on oral medications patient denies any other major medical issues. She has had back surgery, no prior injuries to her foot or fractures. Related Data Home Medications Medication Instructions Recorded Confirmed chlorthalidone 25 mg PO DAILY 06/10/18 06/10/18 glipizide 5 mg PO DAILY 06/10/18 06/10/18 insulin glargine [Lantus U-100 58 units SUBCUT QPM 06/10/18 06/10/18 Insulin] losartan 50 mg PO DAILY 06/10/18 06/10/18 metformin 1,000 mg PO BID 06/10/18 06/10/18 dbtbmtbuhbau-uawy-izxws acid 1 tab PO DAILY 06/10/18 06/10/18 [Centrum Women] rosuvastatin 20 mg PO DAILY 06/10/18 06/10/18 Previous Rx's Medication Instructions Recorded tizanidine [Zanaflex] 4 mg PO Q6-8H PRN #10 cap 06/05/18 acetaminophen 650 mg PO Q6HR PRN #0 tab 06/11/18 docusate sodium 100 mg PO BID #0 cap 06/11/18 hydroxyzine pamoate 25 mg PO Q4HR PRN #50 cap 06/11/18 oxycodone 5 mg PO Q4-6H PRN #40 tab 06/11/18 Allergies Allergy/AdvReac Type Severity Reaction Status Date / Time Penicillins Allergy Verified 06/05/18 12:37 Review of Systems Review of Systems ROS Unobtainable: All systems reviewed & are unremarkable except as noted in HPI and below Musculoskeletal Reports as per HPI, Denies limited range of motion, Denies numbness, Denies tingling and Reports other (pain in left heel) Integumentary/Breasts Denies non-healing lesions, Denies erythema, Denies rash, Denies unusual bruising and Denies wounds Neurologic Denies numbness and Denies tingling PFSH Medical History Diabetes mellitus, insulin dependent (IDDM), controlled (Chronic) HTN (hypertension) (Chronic) Surgical History Status post cholecystectomy (Resolved) Status post hysterectomy (Resolved) Status post tonsillectomy (Resolved) Social History household members: spouse and family Smoking Status: Former smoker alcohol intake: never Social History household members: spouse and family Smoking Status: Former smoker alcohol intake: never Exam Narrative Exam Narrative: GENERAL: Alert and oriented x three, obese female in mild distress. HEENT: Head normocephalic, atraumatic, EOMI, pupils reactive, face symmetric, moist mucous membranes NECK: Supple, full range of motion EXTREMITIES: Normal range of motion, no clubbing. Patient has some tenderness over the calcaneus with palpation. There is some slight swelling in comparison to the other foot. There is no other swelling throughout the left foot. Patient has 2+ dorsalis pedis. She has cap refill less than 5 seconds in all 5 toes. She has no other bony tenderness on palpation of the foot or left lower extremity. She has normal sensation throughout. No erythema. On inspection of the skin there is no wounds, cracks or breaks in the skin noted. Neurovascularly intact NEUROLOGICAL: Cranial nerves II through XII grossly intact. Moving all extremities SKIN: Warm, dry, no petechiae, no rashes or lesions. Initial Vital Signs Initial Vital Signs: Vital Signs Temperature 97.3 F L 11/15/18 07:58 Pulse Rate 87 11/15/18 07:58 Respiratory Rate 16 11/15/18 07:58 Blood Pressure 147/100 H 11/15/18 07:58 Pulse Oximetry 98 11/15/18 07:58 Course Orders Ordered: ED Orders 11/15/18 08:00 XR calcaneus LT min 2V Stat XR foot LT min 3V Stat Vital Signs - 8 hr 11/15/18 07:58 Temperature 97.3 F L Pulse Rate 87 Respiratory Rate 16 Blood Pressure 147/100 H Pulse Oximetry 98 MDM - Extremity Injury (Lower) Imaging Data foot xray: Radiologist's impression: [place] [address] XRay Report Signed Patient: MEGAN SMITH R#: [id number] : 1970Acct:[id number] Age/Sex: 48 / FDate of Service: 11/15/18 Loc: ED Accession Number: [id number] Procedure: XR foot LT min 3V Ordering Provider: Annetta Hughes D.O. PROCEDURE: XR FOOT LT MIN 3V INDICATIONS: heel pain, stepped down hard. hx dm TECHNIQUE: 3 views of the foot were acquired. COMPARISON: [facility], , XR CALCANEOUS LT MIN 2V, 11/15/2018, 8:09. FINDINGS: Bones: No fractures or dislocations. The possible posterior superior calcaneal fracture seen by calcaneal plain film examination is more subtle on the current examination. No suspicious bony lesions. Calcaneal spurring. Soft tissues: No tibiotalar joint effusion. Achilles tendon appears normal. IMPRESSION: The possible posterior superior calcaneal fracture is more subtle on the current examination. Dictated by: Ish Jimenez M.D. on 11/15/2018 at 8:32 Approved by: Ish Jimenez M.D. on 11/15/2018 at 8:33 calcaneus xray: Radiologist's impression: MEGAN SMITH G 48 F [address] [address] XRay Report Signed Patient: MEGAN SMITH GMR#: [id number] : 1970Acct:[id number] Age/Sex: 48 / FDate of Service: 11/15/18 Loc: ED Accession Number: [id number] Procedure: XR calcaneus LT min 2V Ordering Provider: Mank,Annetta C D.O. PROCEDURE: XR CALCANEOUS LT MIN 2V INDICATIONS: heel pain, stepped down hard. TECHNIQUE: Two views of the calcaneus were acquired. COMPARISON: None. FINDINGS: Bones: Linear lucency with possible mild bony step-off involves the posterior superior aspect of the calcaneus. No suspicious bony lesions. Calcaneal spurring is present. Soft tissues: No suspicious calcifications. Achilles tendon appears normal. IMPRESSION: Possible minimally displaced fracture of the posterior superior calcaneus. This could be further assessed with CT, if clinically indicated. Dictated by: Ish Jimenez M.D. on 11/15/2018 at 8:31 Approved by: Ish Jimenez M.D. on 11/15/2018 at 8:32 MDM Narrative Medical decision making narrative: Patient updated on xray findings, spoke with Dr. Johnson who reviewed images. Patient is nontender at the site where the suspected fracture may be his suspicion for fracture is little bit lower after reviewing images. Discussed with patient Orthopedic surgery's recommendations which are weightbearing as tolerated patient can use crutches or cane. She does not have to be splinted at this time and can use a soft shoe. The patient can follow up with them as outpatient, potentially would have MRI in the future if patient's symptoms are not improving. I discussed at length with patient. She was also given a script for a scooter and resources for soroptomist to borrow one if she prefers. Discharge Plan Departure Patient Disposition: Home Clinical Impression: Pain of left heel Activity Restrictions/Additional Instructions: Follow-up with Orthopedic surgery for evaluation and possible further imaging as determined by Orthopedic surgery. Call to set up your appointment. Your xray shows a possible calcaneal fracture. You you may continue with Tylenol up to a 1000 mg every 8 hours. You may also take ibuprofen up to 600mg every 6 hours as needed. You may use heat and/or ice alternating to the affected area as needed. You may weight bare as tolerated, using a crutches. Elevated affected body part to decrease swelling. OK to use ice pack on the affected body part. Use for 15-20 minutes each time, for 5-6x per day. If you develop worsening pain, numbness, tingling, discoloration of the affected body part ither see your doctor for an urgent re-assessment, or return to the Emergency Department. Return to the emergency department for fevers greater than 100.4F, rapidly worsening pain, signs of infection, new color change, weakness, loss of sensation or other new or concerning symptoms. Prescriptions: No Action tizanidine [Zanaflex] 4 mg capsule 4 mg PO Q6-8H PRN (Reason: muscle spasticity) Qty: 10 RF: 0 losartan 50 mg Tablet 50 mg PO DAILY RF: 0 insulin glargine [Lantus U-100 Insulin] 100 unit/mL Solution 58 units subcut QPM RF: 0 chlorthalidone 25 mg Tablet 25 mg PO DAILY RF: 0 metformin 1,000 mg Tablet 1,000 mg PO BID RF: 0 glipizide 5 mg Tablet 5 mg PO DAILY RF: 0 rosuvastatin 20 mg Tablet 20 mg PO DAILY RF: 0 pavxlteqfxmd-kwtq-mokjj acid [Centrum Women] 18-400 mg-mcg Tablet 1 tab PO DAILY RF: 0 acetaminophen 325 mg Tablet 650 mg PO Q6HR PRN (Reason: Pain, Mild (1-3)) Qty: 0 RF: 0 docusate sodium 100 mg Capsule 100 mg PO BID Qty: 0 RF: 0 hydroxyzine pamoate 25 mg Capsule 25 mg PO Q4HR PRN (Reason: Nausea And Vomiting) Qty: 50 RF: 0 oxycodone 5 mg tablet 5 mg PO Q4-6H PRN (Reason: pain) Qty: 40 RF: 0 Referrals: Yuri Gore [Primary Care Provider] - Troy Johnson MD [Physician] -
--- NOTE | 2018-11-15 08:05 | ED_ITS ---
HPI - Extremity Injury (Lower) General Chief Complaint: Extremity Injury, Lower Stated Complaint: LT FOOT HEAL/TRIPPED/STEPPED DOWN Time Seen by Provider: 11/15/18 08:00 Source: patient Mode of arrival: ambulatory Limitations: no limitations History of Present Illness HPI Narrative: This is a 48-year-old female who comes to the emergency department with complaint of left heel pain. patient states yesterday she was at her [employer] baseball game. She was stepping down off the bleachers when she stepped down sort of forcefully on her heel. Patient states that she has had pain since then. She has a little bit of swelling. No discoloration patient is not having any numbness, no tingling. She has pain with weight-bearing. She has not had any cuts or injuries to the foot otherwise that she has noted. She is a diabetic on oral medications patient denies any other major medical issues. She has had back surgery, no prior injuries to her foot or fractures. Related Data Home Medications Medication Instructions Recorded Confirmed chlorthalidone 25 mg PO DAILY 06/10/18 06/10/18 glipizide 5 mg PO DAILY 06/10/18 06/10/18 insulin glargine [Lantus U-100 58 units SUBCUT QPM 06/10/18 06/10/18 Insulin] losartan 50 mg PO DAILY 06/10/18 06/10/18 metformin 1,000 mg PO BID 06/10/18 06/10/18 orzpngkafwvz-icab-sliol acid 1 tab PO DAILY 06/10/18 06/10/18 [Centrum Women] rosuvastatin 20 mg PO DAILY 06/10/18 06/10/18 Previous Rx's Medication Instructions Recorded tizanidine [Zanaflex] 4 mg PO Q6-8H PRN #10 cap 06/05/18 acetaminophen 650 mg PO Q6HR PRN #0 tab 06/11/18 docusate sodium 100 mg PO BID #0 cap 06/11/18 hydroxyzine pamoate 25 mg PO Q4HR PRN #50 cap 06/11/18 oxycodone 5 mg PO Q4-6H PRN #40 tab 06/11/18 Allergies Allergy/AdvReac Type Severity Reaction Status Date / Time Penicillins Allergy Verified 06/05/18 12:37 Review of Systems Review of Systems ROS Unobtainable: All systems reviewed & are unremarkable except as noted in HPI and below Musculoskeletal Reports as per HPI, Denies limited range of motion, Denies numbness, Denies tingling and Reports other (pain in left heel) Integumentary/Breasts Denies non-healing lesions, Denies erythema, Denies rash, Denies unusual bruising and Denies wounds Neurologic Denies numbness and Denies tingling PFSH Medical History Diabetes mellitus, insulin dependent (IDDM), controlled (Chronic) HTN (hypertension) (Chronic) Surgical History Status post cholecystectomy (Resolved) Status post hysterectomy (Resolved) Status post tonsillectomy (Resolved) Social History household members: spouse and family Smoking Status: Former smoker alcohol intake: never Social History household members: spouse and family Smoking Status: Former smoker alcohol intake: never Exam Narrative Exam Narrative: GENERAL: Alert and oriented x three, obese female in mild distress. HEENT: Head normocephalic, atraumatic, EOMI, pupils reactive, face symmetric, moist mucous membranes NECK: Supple, full range of motion EXTREMITIES: Normal range of motion, no clubbing. Patient has some tenderness over the calcaneus with palpation. There is some slight swelling in comparison to the other foot. There is no other swelling throughout the left foot. Patient has 2+ dorsalis pedis. She has cap refill less than 5 seconds in all 5 toes. She has no other bony tenderness on palpation of the foot or left lower extremity. She has normal sensation throughout. No erythema. On inspection of the skin there is no wounds, cracks or breaks in the skin noted. Neurovascularly intact NEUROLOGICAL: Cranial nerves II through XII grossly intact. Moving all extremities SKIN: Warm, dry, no petechiae, no rashes or lesions. Initial Vital Signs Initial Vital Signs: Vital Signs Temperature 97.3 F L 11/15/18 07:58 Pulse Rate 87 11/15/18 07:58 Respiratory Rate 16 11/15/18 07:58 Blood Pressure 147/100 H 11/15/18 07:58 Pulse Oximetry 98 11/15/18 07:58 Course Orders Ordered: ED Orders 11/15/18 08:00 XR calcaneus LT min 2V Stat XR foot LT min 3V Stat Vital Signs - 8 hr 11/15/18 07:58 Temperature 97.3 F L Pulse Rate 87 Respiratory Rate 16 Blood Pressure 147/100 H Pulse Oximetry 98 MDM - Extremity Injury (Lower) Imaging Data foot xray: Radiologist's impression: [place] [address] XRay Report Signed Patient: MEGAN SMITH R#: [id number] : 1970Acct:[id number] Age/Sex: 48 / FDate of Service: 11/15/18 Loc: ED Accession Number: [id number] Procedure: XR foot LT min 3V Ordering Provider: Annetta Hughes D.O. PROCEDURE: XR FOOT LT MIN 3V INDICATIONS: heel pain, stepped down hard. hx dm TECHNIQUE: 3 views of the foot were acquired. COMPARISON: [facility], , XR CALCANEOUS LT MIN 2V, 11/15/2018, 8:09. FINDINGS: Bones: No fractures or dislocations. The possible posterior superior calcaneal fracture seen by calcaneal plain film examination is more subtle on the current examination. No suspicious bony lesions. Calcaneal spurring. Soft tissues: No tibiotalar joint effusion. Achilles tendon appears normal. IMPRESSION: The possible posterior superior calcaneal fracture is more subtle on the current examination. Dictated by: Ish Jimenez M.D. on 11/15/2018 at 8:32 Approved by: Ish Jimenez M.D. on 11/15/2018 at 8:33 calcaneus xray: Radiologist's impression: MEGAN SMITH G 48 F [address] [address] XRay Report Signed Patient: MEGAN SMITH GMR#: [id number] : 1970Acct:[id number] Age/Sex: 48 / FDate of Service: 11/15/18 Loc: ED Accession Number: [id number] Procedure: XR calcaneus LT min 2V Ordering Provider: Mank,Annetta C D.O. PROCEDURE: XR CALCANEOUS LT MIN 2V INDICATIONS: heel pain, stepped down hard. TECHNIQUE: Two views of the calcaneus were acquired. COMPARISON: None. FINDINGS: Bones: Linear lucency with possible mild bony step-off involves the posterior superior aspect of the calcaneus. No suspicious bony lesions. Calcaneal spurring is present. Soft tissues: No suspicious calcifications. Achilles tendon appears normal. IMPRESSION: Possible minimally displaced fracture of the posterior superior calcaneus. This could be further assessed with CT, if clinically indicated. Dictated by: Ish Jimenez M.D. on 11/15/2018 at 8:31 Approved by: Ish Jimenez M.D. on 11/15/2018 at 8:32 MDM Narrative Medical decision making narrative: Patient updated on xray findings, spoke with Dr. Johnson who reviewed images. Patient is nontender at the site where the suspected fracture may be his suspicion for fracture is little bit lower after reviewing images. Discussed with patient Orthopedic surgery's recommendations which are weightbearing as tolerated patient can use crutches or cane. She does not have to be splinted at this time and can use a soft shoe. The patient can follow up with them as outpatient, potentially would have MRI in the future if patient's symptoms are not improving. I discussed at length with patient. She was also given a script for a scooter and resources for soroptomist to borrow one if she prefers. Discharge Plan Departure Patient Disposition: Home Clinical Impression: Pain of left heel Activity Restrictions/Additional Instructions: Follow-up with Orthopedic surgery for evaluation and possible further imaging as determined by Orthopedic surgery. Call to set up your appointment. Your xray shows a possible calcaneal fracture. You you may continue with Tylenol up to a 1000 mg every 8 hours. You may also take ibuprofen up to 600mg every 6 hours as needed. You may use heat and/or ice alternating to the affected area as needed. You may weight bare as tolerated, using a crutches. Elevated affected body part to decrease swelling. OK to use ice pack on the affected body part. Use for 15-20 minutes each time, for 5-6x per day. If you develop worsening pain, numbness, tingling, discoloration of the affected body part ither see your doctor for an urgent re-assessment, or return to the Emergency Department. Return to the emergency department for fevers greater than 100.4F, rapidly worsening pain, signs of infection, new color change, weakness, loss of sensation or other new or concerning symptoms. Prescriptions: No Action tizanidine [Zanaflex] 4 mg capsule 4 mg PO Q6-8H PRN (Reason: muscle spasticity) Qty: 10 RF: 0 losartan 50 mg Tablet 50 mg PO DAILY RF: 0 insulin glargine [Lantus U-100 Insulin] 100 unit/mL Solution 58 units subcut QPM RF: 0 chlorthalidone 25 mg Tablet 25 mg PO DAILY RF: 0 metformin 1,000 mg Tablet 1,000 mg PO BID RF: 0 glipizide 5 mg Tablet 5 mg PO DAILY RF: 0 rosuvastatin 20 mg Tablet 20 mg PO DAILY RF: 0 poogcorofdts-essk-awxhk acid [Centrum Women] 18-400 mg-mcg Tablet 1 tab PO DAILY RF: 0 acetaminophen 325 mg Tablet 650 mg PO Q6HR PRN (Reason: Pain, Mild (1-3)) Qty: 0 RF: 0 docusate sodium 100 mg Capsule 100 mg PO BID Qty: 0 RF: 0 hydroxyzine pamoate 25 mg Capsule 25 mg PO Q4HR PRN (Reason: Nausea And Vomiting) Qty: 50 RF: 0 oxycodone 5 mg tablet 5 mg PO Q4-6H PRN (Reason: pain) Qty: 40 RF: 0 Referrals: Yuri Gore [Primary Care Provider] - Troy Johnson MD [Physician] -
[2018-11-15 09:56] VITALS: BP 148/98; PULSE 86; RESP 14
== END 2018-11-15 09:58 | disposition home or self-care (01) ==
PROVIDERS: Emergency Provider Emergency Medicine; PCP Family Medicine Sports Medicine
DX: M79.672 Pain in left foot (principal)
CPT/HCPCS: 73630; 73650; 99282; 99283

== ENCOUNTER → 2019-07-12 14:43 | Outpatient (CLI) | payer OTHER, SELFPAY ==
[2018-06-10 14:51] VITALS: BMI 49.4
== END ==
PROVIDERS: PCP Family Medicine Sports Medicine; Visit Provider Physician Assistant
DX: R30.0 Dysuria (principal)
CPT/HCPCS: 87077; 87086; 87186

== ENCOUNTER → 2022-08-20 14:35 | Outpatient (CLI) | payer OTHER, SELFPAY ==
[2018-06-10 14:51] VITALS: BMI 49.4
== END ==
PROVIDERS: PCP Family Medicine Sports Medicine; Visit Provider Physician Assistant Medical
DX: J02.9 Acute pharyngitis, unspecified (principal)
CPT/HCPCS: 87070

== ENCOUNTER 2023-09-17 11:01 | Emergency (ER) | payer OTHER, SELFPAY ==
[2018-06-10 14:51] VITALS: BMI 49.4
[2023-09-17 11:03] VITALS: BP 122/86; PULSE 81; RESP 15; TEMP 36.2; O2SAT 98; BMI 39.4
--- NOTE | 2023-09-17 11:05 | DI.US.S_ITS ---
PROCEDURE: US PERIPH VENOUS LOW EXTREM RT INDICATIONS: CALF PAIN/SWELLING TECHNIQUE: Real-time imaging, as well as color and pulse Doppler interrogation, were performed of the lower extremity deep veins from the inguinal ligament to the popliteal fossa, with documentation of the visualized calf veins. COMPARISON: None. FINDINGS: The common femoral, femoral, popliteal, and the visualized calf veins are normally compressible, and free of intraluminal thrombus. Color and pulse Doppler demonstrate normal phasic intraluminal flow. There is normal augmentation response to distal compression maneuver. Atherosclerotic plaques are noted in common femoral artery, posterior tibial and anterior tibial arteries. IMPRESSION: No findings of lower extremity deep venous thrombosis. Dictated by: Deana Man M.D. on 09/17/2023 at 12:07 Approved by: Deana Man M.D. on 09/17/2023 at 12:08
--- NOTE | 2023-09-17 11:11 | PC.NURSE ---
pt had a total knee replacement Aug 18 and has been doing PT since then. Mon pt started having pain in the calf that increases with weight bearing. pt states last night it kept her awake. calf is not warm to the touch but is tender with + Holmans sign pt was sent from PT for evaluation
--- NOTE | 2023-09-17 11:13 | PC.NURSE ---
US at bedside
--- NOTE | 2023-09-17 11:16 | ED.EXTPRO ---
HPI - Extremity Problem <SHELLY Hwang - Last Filed: 09/17/23 12:18> General Chief complaint: Extremity Problem,Nontraumatic Stated complaint: poss blood clot Time Seen by Provider: 09/17/23 11:13 Source: patient Mode of arrival: Ambulatory History of Present Illness HPI Narrative: 53-year-old female, former smoker, with history right total knee replacement on August 18, presents to the emergency department, by recommendation of the physical therapist, for right calf pain x1 day. Patient has been attending physical therapy twice weekly since the surgery. Patient reports that surgery went much better than expected. Patient denies any redness, warmth or swelling right lower leg, but tenderness to palpation along arterial line. Patient denies any trauma to that area. Related Data Home Medications Medication Instructions Recorded Confirmed chlorthalidone 25 mg tablet 25 mg PO DAILY 06/10/18 08/20/22 glipizide 5 mg tablet 5 mg PO DAILY 06/10/18 08/20/22 insulin glargine 100 unit/mL 58 units SUBCUT QPM 06/10/18 08/20/22 subcutaneous solution (Lantus U-100 Insulin) losartan 50 mg tablet 50 mg PO DAILY 06/10/18 08/20/22 metformin 1,000 mg tablet 1,000 mg PO BID 06/10/18 08/20/22 multivitamin-ferrous 1 tab PO DAILY 06/10/18 08/20/22 fumarate-folic acid 18 mg-400 mcg tablet (Centrum Women) rosuvastatin 20 mg tablet 20 mg PO DAILY 06/10/18 08/20/22 semaglutide 1 mg/dose (2 mg/1.5 1 mg SUBCUT QWEEK 07/12/19 08/20/22 mL) subcutaneous pen injector (Ozempic) Previous Rx's Medication Instructions Recorded phenazopyridine 100 mg tablet 100 mg PO TID PRN pain 6 doses #6 07/12/19 (Pyridium) tabs azithromycin 250 mg tablet See Rx Instructions PO .COMPLEX #6 08/20/22 (Zithromax) tabs Allergies Allergy/AdvReac Type Severity Reaction Status Date / Time Penicillins AdvReac Seizure Verified 09/17/23 11:03 Review of Systems <SHELLY Hwang - Last Filed: 09/17/23 12:18> Review of Systems Narrative: Narrative: See HPI. GENERAL: Denies chills, fatigue, fever, sweats. HEENT: Denies sinus pain, ear pain, sore throat, difficulty swallowing, dizziness. RESPIRATORY: Denies dyspnea, cough, wheezing, sputum. CARDIOVASCULAR: Denies chest pain, palpitations, edema. GASTROINTESTINAL: Denies nausea, vomiting, abdominal pain, diarrhea, constipation. : Denies dysuria, frequency, incontinence, hematuria, urinary retention, flank pain. MSK: Denies weakness, joint pain, or bony pain. Endorses right posterior calf pain. SKIN: Denies rash, skin lesions, or pruritis. NEUROLOGIC: Denies weakness, dizziness, headache, numbness, confusion. PSYCHIATRIC: No concerning psychosocial issues. Patient History <SHELLY Hwang - Last Filed: 09/17/23 12:18> Medical History (Updated 09/17/23 @ 12:09 by SHELLY Hwang) HTN (hypertension) Diabetes mellitus, insulin dependent (IDDM), controlled Surgical History Status post cholecystectomy Status post tonsillectomy Status post hysterectomy Social History household members: spouse and family Smoking Status: Former smoker alcohol intake: never Smoking Status: Former smoker alcohol intake frequency: holidays/special occasions only Substance Use Type: does not use Exam <SHELLY Hwang - Last Filed: 09/17/23 12:18> Narrative Exam Narrative: Exam Narrative: GENERAL: This is a well-nourished, well-developed patient, in no acute distress. HEAD: Atraumatic. Normocephalic. EYES: Pupils equal round and reactive. No scleral icterus, injection or drainage. ENT: Nose without bleeding, purulent drainage. Airway patent. NECK: Trachea midline. No JVD. CARDIOVASCULAR: Regular rate and rhythm without murmurs, peripheral pulses intact, cap refill <2 sec. RESPIRATORY: Breath sounds equal and clear bilaterally. No wheezes, rales, or rhonchi. No cough. No increased respiratory effort. No accessory muscle use. GASTROINTESTINAL: Abdomen soft, non-tender, nondistended without guarding or rebound. No suprapubic pain. MSK: Moves all extremities. Normal range of motion, no clubbing or edema. Neurovascularly intact. NEURO: A&O x 3. SKIN: Warm, dry, no rashes or lesions noted. Surgical scar right knee, with good approximation, with no signs of infection. Faint healed bruising on posterior right lower calf. Right calf 38.5, left calf 37. Bilateral ankles equal. Initial Vital Signs Initial Vital Signs: Vital Signs Temperature 97.1 F L 09/17/23 11:03 Pulse Rate 81 09/17/23 11:03 Respiratory Rate 15 09/17/23 11:03 Blood Pressure 122/86 09/17/23 11:03 Pulse Oximetry 98 09/17/23 11:03 Oxygen Delivery Method Room Air 09/17/23 11:03 Reviewed <Chuck Quintero MD - Last Filed: 10/06/23 07:06> Initial Vital Signs Initial Vital Signs: Vital Signs Temperature 97.1 F L 09/17/23 11:03 Pulse Rate 81 09/17/23 11:03 Respiratory Rate 15 09/17/23 11:03 Blood Pressure 122/86 09/17/23 11:03 Pulse Oximetry 98 09/17/23 11:03 Oxygen Delivery Method Room Air 09/17/23 11:03 Scores <SHELLY Hwang - Last Filed: 09/17/23 12:18> Titus Criteria for DVT Active Cancer (Treatment within 6 months): No Bedridden recently >3 days or major surgery within 4 weeks: Yes Calf Swelling >3cm compared to other leg: No Collateral (nonvericose) superficial veins present: No Entire leg swollen: No Localized tenderness along the deep vein system: Yes Pitting edema, confined to symtomatic leg: No Paralysis, paresis, or recent plaster immobilization of ext: No Previously documented DVT: No Alternative dx to DVT as likely or more likely: Yes Titus criteria for DVT: 0 <Chuck Quintero MD - Last Filed: 10/06/23 07:06> WellsLucio Criteria for DVT Wells' criteria for DVT: 0 Course <SHELLY Hwang - Last Filed: 09/17/23 12:18> Orders Ordered: ED Orders 09/17/23 11:05 US periph venous low extrem rt Stat Vital Signs Vital signs: Vital Signs - 8 hr 09/17/23 11:03 Temperature 97.1 F L Pulse Rate 81 Respiratory Rate 15 Blood Pressure 122/86 Pulse Oximetry 98 Oxygen Delivery Method Room Air <Chuck Quintero MD - Last Filed: 10/06/23 07:06> Orders Ordered: ED Orders 09/17/23 11:05 US perip venous low extrem rt Stat Vital Signs Vital signs: Vital Signs - 8 hr 09/17/23 11:03 Temperature 97.1 F L Pulse Rate 81 Respiratory Rate 15 Blood Pressure 122/86 Pulse Oximetry 98 Oxygen Delivery Method Room Air MDM - Extremity (Nontraumatic) <SHELLY Hwang - Last Filed: 09/17/23 12:18> Differential Diagnosis Differential diagnosis: Likely cellulitis, lower extremity edema and deep vein thrombosis of lower extremity Imaging Data US - DVT: Radiologist's Impression: [address] [address] Ultrasound Report Signed Patient: Marissa Easton MR#: [id number] : 1970 Acct:[id number] Age/Sex: 53 / F Date of Service: 09/17/23 Loc: ED Accession Number: [id number] Procedure: US perip venous low extrem rt Ordering Provider: Chuck Quintero MD PROCEDURE: US PERIP VENOUS LOW EXTREM RT INDICATIONS: CALF PAIN/SWELLING TECHNIQUE: Real-time imaging, as well as color and pulse Doppler interrogation, were performed of the lower extremity deep veins from the inguinal ligament to the popliteal fossa, with documentation of the visualized calf veins. COMPARISON: None. FINDINGS: The common femoral, femoral, popliteal, and the visualized calf veins are normally compressible, and free of intraluminal thrombus. Color and pulse Doppler demonstrate normal phasic intraluminal flow. There is normal augmentation response to distal compression maneuver. Atherosclerotic plaques are noted in common femoral artery, posterior tibial and anterior tibial arteries. IMPRESSION: No findings of lower extremity deep venous thrombosis. Dictated by: Deana Man M.D. on 09/17/2023 at 12:07 Approved by: Deana Man M.D. on 09/17/2023 at 12:08 [facility] Narrative Medical decision making narrative: 53-year-old female with calf pain. Assessment was encouraging and wells criteria was not significant for DVT. Ultrasound obtained and determined there was no DVT. Recommended a close wait and watch approach and to return for any worsening symptoms. Patient verbalized understanding and was agreeable with course of action. Discharge Plan Departure Patient Disposition: Home Clinical Impression: Pain of right calf Instructions: DI for Cellulitis -- Adult Activity Restrictions/Additional Instructions: *You have been diagnosed with right calf pain. My assessment was encouraging and the ultrasound was negative for a DVT. Please watch the area closely and for any worsening symptoms, please feel free to return to the emergency department. *What to do: *Please continue to take your regular medications as directed. [ ] New medication prescriptions sent to your pharmacy: [ ] [ ] New medication written as a paper prescription [x ] No new medications given *Please follow up with your primary care provider in 2-3 days, call for an appointment. Let them know you were seen in the Emergency Department and that we ask that you be seen in follow up. We will electronically transmit a record of today's note if your PCP is in our system *If you do not have a primary care provider please contact the [facility] Resource line at [phone]. They will ask some questions about your medical history and help get you set up with a doctor in the community. ? Return to ER if you should have any new, worsening or concerning symptoms, such as worsening pain, severe headache, confusion, chest pain, difficulty breathing, fever greater than 101 F, shaking chills, persistent vomiting to the point that you cannot drink fluids, or other new or worsening symptoms. Prescriptions: No Action Ozempic 1 mg/dose (2 mg/1.5 mL) pen injector 1 mg SUBCUT QWEEK phenazopyridine [Pyridium] 100 mg tablet 100 mg PO TID PRN (Reason: pain) 0 Days Qty: 6 0RF azithromycin [Zithromax] 250 mg tablet See Rx Instructions PO .COMPLEX Qty: 6 0RF Rx Instructions: For 250 mg dose pack: take 500 mg today (day 1), then 250 mg for 4 days (days 2-5) PO losartan 50 mg Tablet 50 mg PO DAILY insulin glargine [Lantus U-100 Insulin] 100 unit/mL Solution 58 units subcut QPM chlorthalidone 25 mg Tablet 25 mg PO DAILY metformin 1,000 mg Tablet 1,000 mg PO BID glipizide 5 mg Tablet 5 mg PO DAILY rosuvastatin 20 mg Tablet 20 mg PO DAILY prpxromipumj-eafh-dgfcn acid [Centrum Women] 18-400 mg-mcg Tablet 1 tab PO DAILY Referrals: Yuri Gore MD [Primary Care Provider] - Stand Alone Forms: Patient Portal/API ED Sign-out <Chuck Quintero MD - Last Filed: 10/06/23 07:06> Cosign ED Attending Cosramoature Attestation: I was immediately available in the department for consultation. ?This documentation has been reviewed and I agree with assessment and plan. Supervised by Chuck Quintero MD
[2023-09-17 12:35] VITALS: BP 165/93; PULSE 80; RESP 16; O2SAT 97
== END 2023-09-17 12:36 | disposition home or self-care (01) ==
PROVIDERS: Emergency Provider Registered Nurse; PCP Family Medicine Sports Medicine
DX: M79.604 Pain in right leg (principal); Z79.899 Other long term (current) drug therapy
CPT/HCPCS: 93971; 99281; 99283

== ENCOUNTER 2023-12-31 08:54 | Emergency (ER) | payer OTHER, SELFPAY ==
[2018-06-10 14:51] VITALS: BMI 49.4
--- NOTE | 2023-12-31 09:15 | ED.EXTPRO ---
HPI - Extremity Problem General Chief complaint: Extremity Problem,Nontraumatic Stated complaint: might have blood clot on right valderrama Time Seen by Provider: 12/31/23 09:02 History of Present Illness HPI Narrative: Patient is a 53-year-old female history of insulin-dependent diabetes presenting to great leg pain and swelling. She reports that she had a right TKA done a 4 months ago. She has been going to physical therapy. She went to physical therapy today and she noticed some erythema on her right lower leg. She also has reported some increased swelling over the last 1-2 days. She reports that over the erythema there is a vein right under and it is palpable. She says it is tender to touch. She denies any sort of chest pain or shortness of breath. No fever chills. No injury to leg. Related Data Home Medications Medication Instructions Recorded Confirmed chlorthalidone 25 mg tablet 25 mg PO DAILY 06/10/18 08/20/22 glipizide 5 mg tablet 5 mg PO DAILY 06/10/18 08/20/22 insulin glargine 100 unit/mL 58 units SUBCUT QPM 06/10/18 08/20/22 subcutaneous solution (Lantus U-100 Insulin) losartan 50 mg tablet 50 mg PO DAILY 06/10/18 08/20/22 metformin 1,000 mg tablet 1,000 mg PO BID 06/10/18 08/20/22 multivitamin-ferrous 1 tab PO DAILY 06/10/18 08/20/22 fumarate-folic acid 18 mg-400 mcg tablet (Centrum Women) rosuvastatin 20 mg tablet 20 mg PO DAILY 06/10/18 08/20/22 semaglutide 1 mg/dose (2 mg/1.5 1 mg SUBCUT QWEEK 07/12/19 08/20/22 mL) subcutaneous pen injector (Ozempic) Previous Rx's Medication Instructions Recorded phenazopyridine 100 mg tablet 100 mg PO TID PRN pain 6 doses #6 07/12/19 (Pyridium) tabs azithromycin 250 mg tablet See Rx Instructions PO .COMPLEX #6 08/20/22 (Zithromax) tabs doxycycline hyclate 100 mg capsule 100 mg PO BID #14 caps 12/31/23 Allergies Allergy/AdvReac Type Severity Reaction Status Date / Time Penicillins AdvReac Seizure Verified 09/17/23 11:03 Patient History Medical History (Updated 12/31/23 @ 10:15 by Daksha Mclain DO) HTN (hypertension) Diabetes mellitus, insulin dependent (IDDM), controlled Surgical History Status post cholecystectomy Status post tonsillectomy Status post hysterectomy Social History household members: spouse and family Smoking Status: Former smoker alcohol intake: never Smoking Status: Former smoker alcohol intake frequency: holidays/special occasions only Substance Use Type: does not use Exam Initial Vital Signs Initial Vital Signs: Vital Signs Temperature 98.1 F 12/31/23 09:17 Pulse Rate 73 12/31/23 09:17 Respiratory Rate 16 12/31/23 09:17 Blood Pressure 135/84 12/31/23 09:17 Pulse Oximetry 98 12/31/23 09:17 Oxygen Delivery Method Room Air 12/31/23 09:17 GENERAL: Well-appearing, well-nourished and in no acute distress. CARDIOVASCULAR: peripheral pulses in tact, cap refill <2 sec RESPIRATORY: No respiratory distress, speaks in full sentences without difficulty EXTREMITIES: Normal range of motion, no clubbing or edema. Neurovascularly intact Right lower extremity more swollen than left no posterior calf pain NEUROLOGICAL: Cranial nerves II through XII grossly intact. Normal gait and speech. SKIN: Erythema right anterior valderrama Course Orders Ordered: ED Orders 12/31/23 09:21 perip venous low extrem rt Stat Vital Signs Vital signs: Vital Signs - 8 hr 12/31/23 09:17 12/31/23 10:28 Temperature 98.1 F Pulse Rate 73 77 Respiratory Rate 16 18 Blood Pressure 135/84 135/100 H Pulse Oximetry 98 96 Oxygen Delivery Method Room Air Room Air MDM - Extremity (Nontraumatic) Imaging Data US - DVT: Radiologist's Impression: PROCEDURE: US PERIP VENOUS LOW EXTREM RT INDICATIONS: possible clot TECHNIQUE: Real-time imaging, as well as color and pulse Doppler interrogation, were performed of the lower extremity deep veins from the inguinal ligament to the popliteal fossa, with documentation of the visualized calf veins. COMPARISON: [facility], US PERIPH VENOUS LOW EXTREM RT, 09/17/2023, 11:18. FINDINGS: The common femoral, femoral, popliteal, and the visualized calf veins are normally compressible, and free of intraluminal thrombus. Color and pulse Doppler demonstrate normal phasic intraluminal flow. There is normal augmentation response to distal compression maneuver. Edema noted within the calf. IMPRESSION: No findings of lower extremity deep venous thrombosis. Dictated by: Fausto Garcia M.D. on 12/31/2023 at 9:52 Approved by: Fausto Garcia M.D. on 12/31/2023 at 9:53 [facility] Narrative Medical decision making narrative: Patient 53-year-old female insulin-dependent diabetic presents today with right leg swelling and erythema. No fever. DVT ultrasound negative, no superficial thrombus. Might be the start of cellulitis. Will treat with doxycycline and close monitoring. sHe is pretty severe reaction to penicillin more avoid cephalosporins. He is afebrile does not appear septic very small area of erythema without fever. Discharge Plan Departure Patient Disposition: Home Clinical Impression: Cellulitis Instructions: DI for Cellulitis -- Adult Activity Restrictions/Additional Instructions: *You have been diagnosed with cellulitis *What to do: At this time ultrasound is negative for any kind of blood clot. Will treat you for skin infection. Please monitor very closely. *Continue to take medications as directed Doxycycline 100 mg twice a day for 7 days[facility] *Follow up with your primary care provider in 2-3 days or call [phone] *Return to ER if you should have increasing redness pain swelling fever chills or any new, worsening or concerning symptoms Prescriptions: New doxycycline hyclate 100 mg capsule 100 mg PO BID Qty: 14 0RF No Action Ozempic 1 mg/dose (2 mg/1.5 mL) pen injector 1 mg SUBCUT QWEEK phenazopyridine [Pyridium] 100 mg tablet 100 mg PO TID PRN (Reason: pain) 0 Days Qty: 6 0RF azithromycin [Zithromax] 250 mg tablet See Rx Instructions PO .COMPLEX Qty: 6 0RF Rx Instructions: For 250 mg dose pack: take 500 mg today (day 1), then 250 mg for 4 days (days 2-5) PO losartan 50 mg Tablet 50 mg PO DAILY insulin glargine [Lantus U-100 Insulin] 100 unit/mL Solution 58 units subcut QPM chlorthalidone 25 mg Tablet 25 mg PO DAILY metformin 1,000 mg Tablet 1,000 mg PO BID glipizide 5 mg Tablet 5 mg PO DAILY rosuvastatin 20 mg Tablet 20 mg PO DAILY jbywjspziipe-xzvj-pcokm acid [Centrum Women] 18-400 mg-mcg Tablet 1 tab PO DAILY Referrals: Baldomero Pisano DO [Primary Care Provider] - Stand Alone Forms: Patient Portal/API
[2023-12-31 09:17] VITALS: BP 135/84; PULSE 73; RESP 16; TEMP 36.7; O2SAT 98; BMI 40.2
--- NOTE | 2023-12-31 09:21 | DI.US.S_ITS ---
PROCEDURE: US PERIP VENOUS LOW EXTREM RT INDICATIONS: possible clot TECHNIQUE: Real-time imaging, as well as color and pulse Doppler interrogation, were performed of the lower extremity deep veins from the inguinal ligament to the popliteal fossa, with documentation of the visualized calf veins. COMPARISON: [facility], , [facility] VENOUS LOW EXTREM RT, 09/17/2023, 11:18. FINDINGS: The common femoral, femoral, popliteal, and the visualized calf veins are normally compressible, and free of intraluminal thrombus. Color and pulse Doppler demonstrate normal phasic intraluminal flow. There is normal augmentation response to distal compression maneuver. Edema noted within the calf. IMPRESSION: No findings of lower extremity deep venous thrombosis. Dictated by: Fausto Garcia M.D. on 12/31/2023 at 9:52 Approved by: Fausto Garcia M.D. on 12/31/2023 at 9:53
[2023-12-31 10:28] VITALS: BP 135/100; PULSE 77; RESP 18; O2SAT 96
== END 2023-12-31 10:29 | disposition home or self-care (01) ==
PROVIDERS: Emergency Provider Emergency Medicine; PCP Family Medicine
DX: L03.115 Cellulitis of right lower limb (principal)
CPT/HCPCS: 93971; 99283

== ENCOUNTER 2024-06-12 09:40 | Day surgery (SDC) | payer OTHER, SELFPAY ==
[2018-06-10 14:51] VITALS: BMI 49.4
[2024-06-12] VITALS (8 sets, daily range): BP systolic 105–129; BP diastolic 57–86; PULSE 58–78; RESP 12–18; TEMP 36.1–36.7; O2SAT 94–99; BMI 40.2
--- NOTE | 2024-06-12 06:41 | PM.HP.1 ---
History of Present Illness History of Present Illness Chief complaint: Left Achilles Tendon Repair Narrative: 53 year old female here for left Achillespain. It is rated at +6-7/10. She had a full knee replacement on August 18 and started walking immediately. She experienced a fall about four months ago, which she believes might have sparked the injury and lingering pain. Patient looks forward to returning back normal activities and exercising, but this condition is affecting her activities of daily living. Patient would like to proceed with procedure. Patient denies n/c/f/c/sob/cp. [facility] Medical History (Updated 06/06/24 @ 11:09 by Lenora Nuñez RN) Loose right total knee arthroplasty HTN (hypertension) Diabetes mellitus, insulin dependent (IDDM), controlled Surgical History (Updated 06/06/24 @ 11:09 by Lenora Nuñez RN) History of total right knee replacement (08/2023) Status post cholecystectomy Status post tonsillectomy Status post hysterectomy Social History household members: spouse and family Smoking Status: Former smoker alcohol intake: current Meds Home Medications and Allergies Home Medications Medication Instructions Recorded Confirmed Type chlorthalidone 25 mg tablet 25 mg PO DAILY 06/10/18 08/20/22 History glipizide 5 mg tablet 5 mg PO DAILY 06/10/18 08/20/22 History insulin glargine 100 unit/mL 58 units SUBCUT QPM 06/10/18 08/20/22 History subcutaneous solution (Lantus U-100 Insulin) losartan 50 mg tablet 50 mg PO DAILY 06/10/18 08/20/22 History metformin 1,000 mg tablet 1,000 mg PO BID 06/10/18 08/20/22 History multivitamin-ferrous 1 tab PO DAILY 06/10/18 08/20/22 History fumarate-folic acid 18 mg-400 mcg tablet (Centrum Women) rosuvastatin 20 mg tablet 20 mg PO DAILY 06/10/18 08/20/22 History phenazopyridine 100 mg tablet 100 mg PO TID PRN pain 6 doses #6 07/12/19 08/20/22 Rx (Pyridium) tabs semaglutide 1 mg/dose (2 mg/1.5 1 mg SUBCUT QWEEK 07/12/19 08/20/22 History mL) subcutaneous pen injector (Ozempic) azithromycin 250 mg tablet See Rx Instructions PO .COMPLEX #6 08/20/22 08/20/22 Rx (Zithromax) tabs doxycycline hyclate 100 mg capsule 100 mg PO BID #14 caps 12/31/23 Rx Allergies Allergy/AdvReac Type Severity Reaction Status Date / Time Penicillins AdvReac Seizure Verified 09/17/23 11:03 Exam Extrem Other: Left lower extremity: Antalgic gait. Moderate pain on palpation of Achilles tendon at mid-substance. Intact Achilles tendon with negative Anguiano's test. Assessment & Plan Assessment & Plan narrative: 1. Left foot Achilles tendonitis Patient seen and evaluated. Surgical plan: Left Achilles tendon debridement. Risks and benefits of the procedure discussed with all questions answered to patient's satisfaction. Reviewed potential complications that may include but not limited to the following: DVT, failure to resolve all symptoms, infection, nerve injury, bleeding, recurrence, or wound. Reviewed surgical technique and general aftercare protocols. All questions answered to patient's satisfaction with no guarantees made. Patient verbalized understanding and agreed with surgical plan. RTC for post-op. Time-Based Coding :: [TOTAL MINUTES] spent with patient and on the chart (including review of chart, obtaining history, exam, reviewing outside data, placing orders, documenting exam and treatment plan, and counseling patient) on [DATE].
--- NOTE | 2024-06-12 06:54 | PM.PREOP ---
Pre-operative Note Interval Note History & Physical reviewed/Exam performed by Physician: Yes Changes to H&P: No
[2024-06-12] MEDS: ACETAMINOPHEN 325 MG TABLET 975 MG PO (10:30)
[2024-06-12] MEDS: LACTATED RINGERS 1,000 ML 42 ML IV (10:32)
[2024-06-12] MEDS: CLINDAMYCIN 900 MG/50 ML PIGGYBACK 50 MG IV (11:58)
--- NOTE | 2024-06-12 12:29 | SUR.OPER ---
Prone on padded OR bed, head in foam head support, gel chest rolls, gel pad under knees, pillow and blankets under lower legs, toes free of pressure, arms secured on padded arm boards at <90 degrees abduction. Safety belt at thigh. non surgical leg secured w tape
[2024-06-12] MEDS: ONDANSETRON 4 MG/2 ML INJ IV (13:07)
[2024-06-12] MEDS: PROCHLORPERAZINE 10 MG/2 ML VIAL 5 MG IV (13:41)
--- NOTE | 2024-06-19 05:53 | PM.OP.1 ---
Operative Date/Time/Diagnoses Date of procedure: 06/12/24 Pre-op diagnosis: 1. Left Achilles tendonitis Post-op diagnosis: same Procedure & Clinicians Procedure: 1. Left Achilles tendon debridement and tenolysis Same procedure as scheduled: Yes Indications: Chronic Achilles tendon pain that failed conservative management Surgeon: Mazin Major Click Yes if Unassisted: Yes Anesthesia Type: General Operative Notes Findings: Consistant with diagnosis Closure Type: primary Estimated Blood Loss (mL): 2 Procedure in detail: After receiving prophylactic antibiotics within one hour of the procedure, the patient was brought to the procedure room and placed on the operating room table in prone position. General anesthesia was administered in the operating room. A thigh tourniquet was placed and not inflated for the case. Left lower extremity was prepped in the usual sterile fashion followed by official timeout with the surgical team all in agreement. Attention was directed to midsubstance aspect of left Achilles tendon. 3 cc of 0.5% marcaine plain was administered under ultrasound guidance. Three percutaneous stab incisions were made for insertion and advancement of the ultrasonic sharp cutting tool over the areas of diseased tendon. Debulking and debridement were performed by applying the ultrasonic sharp cutting tool to removal all areas of hypertrophic and frayed changes until adequate removal was visualized and palpated. All incision sites were irrigated using saline and closed using 4-0 nylon. 3 cc of Exparel was injected into surgical site. Bulky sterile dressings were used to cover surgical limb, which was placed in a CAM boot. Patient tolerated procedure without complication and was transferred to PACU hemodynamically stable. Post-operative Condition: stable Disposition: same day surgery Plan for aftercare: Keep dressing clean, dry, and intact. Elevate surgical limb. Ice behind knee.
== END 2024-06-12 14:09 | disposition home or self-care (01) ==
PROVIDERS: PCP Family Medicine; Referring Provider Podiatrist Foot & Ankle Surgery; Visit Provider Podiatrist Foot & Ankle Surgery
PROC: (CPT 27650; principal; 2024-06-12 11:15)
DX: M76.62 Achilles tendinitis, left leg (principal)
CPT/HCPCS: 27654; 82962; J0330; J0780; J1885; J2405; J2704; J2765; J3010

== ENCOUNTER 2024-09-14 06:54 | Emergency (ER) | payer OTHER, SELFPAY ==
[2018-06-10 14:51] VITALS: BMI 49.4
[2024-09-14] VITALS (16 sets, daily range): BP systolic 102–126; BP diastolic 61–82; PULSE 67–83; RESP 13–21; TEMP 36.9; O2SAT 95–99; BMI 39.1
--- NOTE | 2024-09-14 07:37 | EKG_ITS ---
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
--- NOTE | 2024-09-14 07:37 | DI.RAD.S_ITS ---
PROCEDURE: XR CHEST 1V INDICATIONS: chest pain TECHNIQUE: One view of the chest was acquired. COMPARISON: None. FINDINGS: Surgical changes and devices: None. Lungs and pleura: Lungs are clear. No pleural effusions or pneumothorax. Mediastinum: Mediastinal contours appear normal. Heart size is normal. Bones and chest wall: No suspicious bony lesions. Overlying soft tissues appear unremarkable. IMPRESSION: No acute cardiopulmonary pathology. Dictated by: Andrew Chahal M.D. on 09/14/2024 at 8:13 Approved by: Andrew Chahal M.D. on 09/14/2024 at 8:13
[2024-09-14 07:50] LABS: Add Manual Diff / Slide Review NO; Basophils Absolute Auto 100 /uL (0-100); Basophils Percent Auto 0.9 % (0-2); Eosinophils Absolute Auto 200 /uL (0-450); Eosinophils Percent Auto 2.2 % (2-4); Hematocrit 42.7 % (36-46); Hemoglobin 14.9 g/dL (12.0-16.0); Lymphocytes Absolute Auto 2800 /uL (1100-4500); Lymphocytes Percent Auto 35.5 % (25-40); Mean Corpuscular HGB Conc 34.9 % (30-36); Mean Corpuscular Hemoglobin 29.4 PG (26-34); Mean Corpuscular Volume 84.3 fL (80-100); Monocytes Absolute Auto 600 /uL (0-900); Monocytes Percent Auto 7.6 % (3-14); Neutrophils Absolute Auto 4200 /uL (1500-7000); Neutrophils Percent Auto 53.8 % (50-75); Platelet Count 255 X10^3/uL (150-400); Red Blood Cell Count 5.06 X10^6/uL (4.0-5.2); Red Cell Distribution Width 13.4 % (11.6-14.8); White Blood Cell Count 7.8 X10^3/uL (4.5-11.0)
--- NOTE | 2024-09-14 07:52 | ED.ARRPALP ---
HPI - Arrhythmia/Palpitations General Chief Complaint: Arrhythmia/Palpitations Stated Complaint: high blood pressure, cant catch her breath Time Seen by Provider: 09/14/24 07:51 Source: patient, RN notes reviewed and old records reviewed Mode of arrival: Family Vehicle Limitations: no limitations History of Present Illness HPI narrative: 54-year-old female history of diabetes type 2, dyslipidemia presents with complaint of her palpitations and racing heart is started this morning lasted on and off for about 45 minutes. Patient was at work, sitting at her desk when she had symptoms she had chest pressure with her heart racing and shortness of breath which would resolve when it would go away. Lasted for about 45 minutes in total but states it worse sort of episodes where it was on and off. Patient has not had similar in the past. States sensation with similar to if she has been working out or running a race. Denies any fevers or chills, no cold cough or congestion. No current chest pain or pressure no shortness of breath currently. No nausea or vomiting. No issues with bowel movements. No diaphoresis. States she felt dizzy but did not feel like she was going to pass out when her heart was fast. Denies any swelling of extremities. No dysuria urgency or frequency. Patient states home medications include metformin, Jardiance, majora, rosuvastatin and meloxicam does note she has a low dose estrogen patch started a month ago. She had right knee surgery over a year ago, ankle surgery in the past. States allergy to penicillin describes seizure and stops breathing. Denies tobacco, occasional alcohol, no recreational drugs. Notes family history dad has not aneurysm her mother had a brain tumor. No known cardiac disease or arrhythmias. Patient states no recent travel or prolonged sitting. Related Data Home Medications Medication Instructions Recorded Confirmed chlorthalidone 25 mg tablet 25 mg PO DAILY 06/10/18 06/12/24 losartan 50 mg tablet 50 mg PO DAILY 06/10/18 06/12/24 metformin 1,000 mg tablet 500 mg PO DAILY 06/10/18 06/12/24 multivitamin-ferrous 1 tab PO DAILY 06/10/18 06/12/24 fumarate-folic acid 18 mg-400 mcg tablet (Centrum Women) rosuvastatin 20 mg tablet 20 mg PO DAILY 06/10/18 06/12/24 empagliflozin 25 mg tablet 25 mg PO QAM 06/12/24 06/12/24 (Jardiance) tirzepatide 12.5 mg/0.5 mL 12.5 mg SUBCUT 06/12/24 subcutaneous pen injector (Maylin) Previous Rx's Medication Instructions Recorded ondansetron 8 mg disintegrating 8 mg PO Q12H PRN nausea and 06/12/24 tablet vomiting #20 tabs oxycodone-acetaminophen 5 mg-325 1 tab PO Q6H PRN pain #30 tabs 06/12/24 mg tablet (Percocet) Allergies Allergy/AdvReac Type Severity Reaction Status Date / Time Penicillins AdvReac Seizure Verified 09/14/24 07:44 Review of Systems Review of Systems ROS Unobtainable: All systems reviewed & are unremarkable except as noted in HPI and below Patient History Medical History Loose right total knee arthroplasty HTN (hypertension) Diabetes mellitus, insulin dependent (IDDM), controlled Surgical History History of total right knee replacement (08/2023) Status post cholecystectomy Status post tonsillectomy Status post hysterectomy Social History household members: spouse and family Smoking Status: Former smoker alcohol intake: current Smoking Status: Former smoker tobacco type: cigarettes alcohol intake frequency: holidays/special occasions only Exam Narrative Exam Narrative: GENERAL: Alert and oriented x three, female in mild distress HEENT: Head normocephalic, atraumatic, EOMI, pupils reactive, face symmetric, moist mucous membranes NECK: Supple, full range of motion CARDIOVASCULAR: Regular rate and rhythm without murmurs, rubs or gallops. No JVD. No edema bilateral lower extremities. RESPIRATORY: Breath sounds equal bilaterally, no wheezes rales or rhonchi. ABDOMEN: Soft, nontender. Normoactive bowel sounds all 4 quadrants. No guarding or rebound, rigidity, no mass : No CVA tenderness EXTREMITIES: Normal range of motion, no clubbing or edema. Neurovascularly intact NEUROLOGICAL: Cranial nerves II through XII grossly intact. Moving all extremities SKIN: Warm, dry, no petechiae, no rashes or lesions. Initial Vital Signs Initial Vital Signs: Vital Signs Pulse Rate 78 09/14/24 07:28 Pulse Oximetry 96 09/14/24 07:28 Oxygen Delivery Method Room Air 09/14/24 07:28 Course Orders Ordered: Discontinued Medications Aspirin (Aspirin 81 Mg Chew Tab) 324 mg PO NOW ONE Stop: 09/14/24 07:38 Last Admin: 09/14/24 11:26 Dose: Not Given Documented By: TEAGAN Magnesium Sulfate (Magnesium Sulfate) 2 gm in 50 mls @ 150 mls/hr IV NOW ONE Stop: 09/14/24 08:35 Last Infusion: 09/14/24 08:54 Dose: Infused Documented By: TEAGAN Co-signed By: JULISSA Admin: 09/14/24 08:27 Dose: 150 mls/hr Documented By: TEAGAN Co-signed By: LYLE Potassium Chloride (Potassium Chloride 20 Meq Tab) 40 meq PO NOW ONE Stop: 09/14/24 08:17 Last Admin: 09/14/24 08:45 Dose: 40 meq Documented By: TEAGAN Vital Signs Vital signs: Vital Signs - 8 hr 09/14/24 07:28 09/14/24 07:30 09/14/24 07:32 Temperature Pulse Rate 78 79 Respiratory Rate 21 Blood Pressure 113/76 Pulse Oximetry 96 97 Oxygen Delivery Method Room Air 09/14/24 07:32 09/14/24 07:39 09/14/24 08:00 Temperature 98.4 F Pulse Rate 78 76 83 Respiratory Rate 16 18 Blood Pressure 120/73 Pulse Oximetry 98 99 Oxygen Delivery Method Room Air 09/14/24 08:27 09/14/24 08:27 09/14/24 08:30 Temperature Pulse Rate 76 74 Respiratory Rate 14 16 Blood Pressure 126/82 Pulse Oximetry 97 96 Oxygen Delivery Method 09/14/24 08:30 Temperature Pulse Rate Respiratory Rate Blood Pressure 102/76 Pulse Oximetry Oxygen Delivery Method MDM - Arrhythmia/Palpitations Lab Data 09/14/24 07:40 09/14/24 07:40 Labs: Lab Results 09/14/24 09/14/24 Range/Units 07:40 09:52 WBC 7.8 (4.5-11.0) X10^3/uL RBC 5.06 (4.0-5.2) X10^6/uL Hgb 14.9 (12.0-16.0) g/dL Hct 42.7 (36-46) % MCV 84.3 (80-100) fL MCH 29.4 (26-34) PG MCHC 34.9 (30-36) % RDW 13.4 (11.6-14.8) % Plt Count 255 (150-400) X10^3/uL Neut % (Auto) 53.8 (50-75) % Lymph % (Auto) 35.5 (25-40) % [place] % (Auto) 7.6 (3-14) % Eos % (Auto) 2.2 (2-4) % Baso % (Auto) 0.9 (0-2) % Neut # (Auto) 4200 (0001-2342) /uL Lymph # (Auto) 2800 (7848-2560) /uL [place] # (Auto) 600 (0-900) /uL Eos # (Auto) 200 (0-450) /uL Baso # (Auto) 100 (0-100) /uL PT 10.6 (9.4-12.5) SECONDS INR 0.9 (0.9-1.3) APTT 32 (25.1-36.5) SECONDS D-Dimer 404 (<500) ng/ml Sodium 136 L (137-145) mmol/L Potassium 3.0 L (3.4-5.1) mmol/L Chloride 100 (98-107) mmol/L Carbon Dioxide 23 (22-32) mmol/L BUN 16 (7-17) mg/dL Creatinine 0.68 (0.52-1.04) mg/dL Estimated GFR > 60 (>60) mL/min BUN/Creatinine Ratio 23.5 H (6-22) Glucose 134 H (70-100) mg/dL Calcium 9.6 (8.4-10.2) mg/dL Magnesium 1.5 L (1.6-2.3) mg/dL Total Bilirubin 0.6 (0.2-1.3) mg/dL AST 37 H (14-36) IU/L ALT 38 H (<35) IU/L Alkaline Phosphatase 93 (38-126) U/L Total Creatine Kinase 112 (30-135) U/L Troponin I < 0.012 < 0.012 (0.01-0.034) ng/mL NT-Pro-B Natriuret Pep 60 (<125) pg/mL Total Protein 7.6 (6.3-8.2) g/dL Albumin 4.4 (3.5-5.0) g/dL Globulin 3.2 (1.7-4.1) g/dL Albumin/Globulin Ratio 1.4 (1.0-2.8) Lipase 175 (23-300) U/L ECG Data Attestation: I personally reviewed and interpreted this ECG as follows: Prior ECG tracings: not available for review Interpretation: Sinus rhythm, left axis deviation rate of 73, RI 188 QRS 88 QTC of 423. No acute ST elevation or depression. No priors for comparison. Repeat EKG shows sinus rhythm rate of 71 RI 192 QRS of 92 QTC of 452, left axis deviation, no acute ST changes. MDM Narrative Medical decision making narrative: Labs CBC shows no acute change. Coags are negative, sodium is 136 potassium 3, chloride 100 CO2 is 23 BUN 16 with a creatinine of 0.68 glucose is 134 Mag is slightly low at 1.5, AST ALT are slightly elevated at 37 and 38 troponins less than 0.012 with a BNP of 60. D-dimer was obtained as patient has been estrogen low-dose patch. No other risk factors. D-dimer is negative. Repeat troponins less than 0.012 EKG shows sinus rhythm with left axis deviation. Repeat EKG shows no acute change. Chest x-ray shows no acute change Patient's labs do show mild hypokalemia and hypomagnesemia these were replaced orally and IV. On telemetry patient has not had any arrhythmias here today encouraged to follow up for recheck electrolyte replacement Holter/ZIO patch with return precautions. Discharge Plan Departure Patient Disposition: Home Clinical Impression: Palpitations Instructions: DI for Paroxysmal Supraventricular Tachycardia Activity Restrictions/Additional Instructions: Your workup did show that your potassium and magnesium were slightly low these can make you more likely to have arrhythmias. Please take an extra dose of potassium tomorrow. You need to follow up with primary care to have these repeated. I would also recommend follow up for Holter monitor or ZIO patch to evaluate for arrhythmia such as SVT. This can be ordered by Cardiology and/or primary care. Continue your home medications as prescribed. I would recommend eating foods high in potassium for the next several days. Please return for recurrent episodes of fast or irregular heartbeat, chest pain, shortness of breath, lightheadedness or passing out, new swelling of your extremities, vomiting or other new or concerning changes. Prescriptions: No Action Jardiance 25 mg tablet 25 mg PO QAM Mounjaro 12.5 mg/0.5 mL pen injector 12.5 mg SUBCUT oxycodone-acetaminophen [Percocet] 5-325 mg tablet 1 tab PO Q6H PRN (Reason: pain) Qty: 30 0RF ondansetron 8 mg tablet,disintegrating 8 mg PO Q12H PRN (Reason: nausea and vomiting) Qty: 20 0RF losartan 50 mg Tablet 50 mg PO DAILY chlorthalidone 25 mg Tablet 25 mg PO DAILY metformin 1,000 mg Tablet 500 mg PO DAILY rosuvastatin 20 mg Tablet 20 mg PO DAILY Centrum Women 18-400 mg-mcg Tablet 1 tab PO DAILY Referrals: Baldomero Pisano DO [Primary Care Provider] - Tali Chakraborty MD [Physician] - Stand Alone Forms: Patient Portal/API/Survey
[2024-09-14 07:57] LABS: INR 0.9 (0.9-1.3); Prothrombin Time 10.6 SECONDS (9.4-12.5)
[2024-09-14 07:59] LABS: PTT Partial Thromboplastin Tim 32 SECONDS (25.1-36.5)
[2024-09-14 08:00] LABS: Alanine Aminotransferase 38 IU/L (<35); Albumin 4.4 g/dL (3.5-5.0); Albumin Globulin Ratio 1.4 (1.0-2.8); Alkaline Phosphatase 93 U/L (38-126); Aspartate Aminotransferase 37 IU/L (14-36); BUN Creatinine Ratio 23.5 (6-22); Bilirubin Total 0.6 mg/dL (0.2-1.3); Blood Urea Nitrogen 16 mg/dL (7-17); Calcium 9.6 mg/dL (8.4-10.2); Carbon Dioxide 23 mmol/L (22-32); Chloride 100 mmol/L (98-107); Creatine Kinase 112 U/L (30-135); Estimated Glomerular Filt Rate > 60 mL/min (>60); Globulin 3.2 g/dL (1.7-4.1); Glucose 134 mg/dL (70-100); HEMOLYSIS < 15 (0-50); Lipase 175 U/L (23-300); Magnesium 1.5 mg/dL (1.6-2.3); Sodium 136 mmol/L (137-145); Total Protein 7.6 g/dL (6.3-8.2)
[2024-09-14 08:12] LABS: NT-proBNP (BNP-Adult 18+) 60 pg/mL (<125); Troponin I < 0.012 ng/mL (0.01-0.034)
[2024-09-14] MEDS: MAGNESIUM SULFATE 2 GM/50 ML PIGGYBACK IV (08:27)
[2024-09-14] MEDS: POTASSIUM CHLORIDE 20 MEQ TAB 40 MEQ PO (08:45)
[2024-09-14 09:04] LABS: D Dimer 404 ng/ml (<500)
--- NOTE | 2024-09-14 09:47 | EKG_ITS ---
[address] [address] Test Date: 2024-09-14 Pat Name: Marissa Easton Department: Room: Gender: Female Remote Inpatient Coder: KEY : 1970 Requested By: Order Number: [id number] Reading MD: Meliton Ramsey MD Measurements Intervals [place] Rate: 71 P: 20 MT: 192 QRS: -47 QRSD: 92 T: 2 QT: 416 QTc: 452 Interpretive Statements Normal sinus rhythm Left axis deviation Inferior infarct , age undetermined Anterior infarct , age undetermined NO SIGNIFICANT CHANGE FROM PRIOR TRACING Electronically Signed On 09-15-2024 6:50:00 PST by Meliton Ramsey MD
[2024-09-14 10:29] LABS: Troponin I < 0.012 ng/mL (0.01-0.034)
== END 2024-09-14 11:50 | disposition home or self-care (01) ==
PROVIDERS: Emergency Provider Emergency Medicine; PCP Family Medicine
DX: R00.2 Palpitations (principal); E11.9 Type 2 diabetes mellitus without complications; E78.5 Hyperlipidemia, unspecified; Z79.84 Long term (current) use of oral hypoglycemic drugs; Z79.85 Long-term (current) use of injectable non-insulin antidiabetic drugs; E87.6 Hypokalemia; E83.42 Hypomagnesemia
CPT/HCPCS: 36415; 71045; 80053; 82550; 83690; 83735; 83880; 84484; 85025; 85379; 85610; 85730; 93005; 93010; 96365; 99284; 99285; J3475